=== PATIENT | male | born 1955 | race Caucasian/White ===

== ENCOUNTER → 2018-06-22 08:19 | Outpatient (CLI) | payer BC, SELFPAY ==
[2018-06-22 09:44] LABS: BUN Creatinine Ratio 20.8 (6-22); Blood Urea Nitrogen 25 mg/dL (9-20); Calcium 9.5 mg/dL (8.4-10.2); Carbon Dioxide 31 mmol/L (22-32); Chloride 101 mmol/L (98-107); Estimated Glomerular Filt Rate > 60.0 mL/min (>60); Glucose 147 mg/dL (80-110); HEMOLYSIS < 15 (0-50); Potassium 3.9 mmol/L (3.4-5.1); Sodium 140 mmol/L (137-145)
[2018-06-23 05:16] LABS: Hemoglobin A1C% w Est Avg Glu 6.6 % (4.0-6.0)
== END ==
PROVIDERS: PCP Internal Medicine; Visit Provider Internal Medicine
DX: E11.9 Type 2 diabetes mellitus without complications (principal); I10 Essential (primary) hypertension
CPT/HCPCS: 36415; 80048; 83036

== ENCOUNTER → 2018-09-21 10:04 | Outpatient (CLI) | payer BC, SELFPAY ==
[2018-09-21 11:03] LABS: BUN Creatinine Ratio 21.7 (6-22); Blood Urea Nitrogen 26 mg/dL (9-20); Calcium 9.2 mg/dL (8.4-10.2); Carbon Dioxide 28 mmol/L (22-32); Chloride 100 mmol/L (98-107); Estimated Glomerular Filt Rate > 60.0 mL/min (>60); Glucose 167 mg/dL (80-110); HEMOLYSIS < 15 (0-50); Sodium 141 mmol/L (137-145)
[2018-09-21 11:23] LABS: Vitamin D 25 Hydroxy (D3) 32.1 ng/mL (30.0-100.0)
[2018-09-21 11:35] LABS: Hemoglobin A1C% w Est Avg Glu 8.3 % (4.0-6.0)
== END ==
PROVIDERS: PCP Student in an Organized Health Care Education/Training Program; Visit Provider Student in an Organized Health Care Education/Training Program
DX: E55.9 Vitamin D deficiency, unspecified (principal); E11.9 Type 2 diabetes mellitus without complications; I10 Essential (primary) hypertension
CPT/HCPCS: 36415; 80048; 82306; 83036

== ENCOUNTER → 2019-02-04 08:13 | Outpatient (CLI) | payer BC, SELFPAY ==
[2019-02-04 09:12] LABS: Hemoglobin A1C% w Est Avg Glu 7.8 % (4.0-6.0)
== END ==
PROVIDERS: PCP Student in an Organized Health Care Education/Training Program; Visit Provider Student in an Organized Health Care Education/Training Program
DX: E11.9 Type 2 diabetes mellitus without complications (principal)
CPT/HCPCS: 36415; 83036

== ENCOUNTER 2019-02-07 01:24 | Emergency (ER) | payer BC, SELFPAY ==
[2019-02-07] VITALS (8 sets, daily range): BP systolic 129–170; BP diastolic 79–96; PULSE 74–79; RESP 13–17; TEMP 36.6; O2SAT 96–100; BMI 34.9
--- NOTE | 2019-02-07 01:52 | DI.RAD.S_ITS ---
PROCEDURE: XR CHEST 1V INDICATIONS: chest pain TECHNIQUE: One view of the chest was acquired. COMPARISON: [facility], , CHEST 2 VIEW, 05/27/2012, 9:14. FINDINGS: Surgical changes and devices: None. Lungs and pleura: Lungs are clear. No pleural effusions or pneumothorax. Mediastinum: Mediastinal contours appear normal. Heart size is normal. Bones and chest wall: No suspicious bony lesions. Overlying soft tissues appear unremarkable. IMPRESSION: No acute cardiopulmonary disease. Dictated by: Jasen Arthur M.D. on 02/07/2019 at 8:14 Approved by: Jasen Arthur M.D. on 02/07/2019 at 8:15
[2019-02-07 02:05] LABS: Add Manual Diff / Slide Review NO; Basophils Absolute Auto 100 /uL (0-100); Basophils Percent Auto 0.9 % (0-2); Eosinophils Absolute Auto 400 /uL (0-450); Eosinophils Percent Auto 4.2 % (2-4); Hematocrit 40.3 % (41-53); Hemoglobin 13.7 g/dL (13.5-17.5); Lymphocytes Absolute Auto 2500 /uL (1100-4500); Lymphocytes Percent Auto 23.5 % (25-40); Mean Corpuscular HGB Conc 34.1 % (30-36); Mean Corpuscular Hemoglobin 29.6 PG (26-34); Monocytes Absolute Auto 900 /uL (0-900); Monocytes Percent Auto 8.5 % (3-14); Neutrophils Absolute Auto 6600 /uL (1500-7000); Neutrophils Percent Auto 62.9 % (50-75); Platelet Count 274 X10^3/uL (150-400); Red Blood Cell Count 4.63 X10^6/uL (4.5-5.9); Red Cell Distribution Width 12.6 % (11.6-14.8); White Blood Cell Count 10.5 X10^3/uL (4.5-11.0)
[2019-02-07 02:10] LABS: Alanine Aminotransferase 47 IU/L (21-72); Albumin 4.4 g/dL (3.5-5.0); Albumin Globulin Ratio 1.4 (1.0-2.8); Alkaline Phosphatase 74 U/L (38-126); Aspartate Aminotransferase 22 IU/L (17-59); BUN Creatinine Ratio 23.1 (6-22); Bilirubin Total 0.5 mg/dL (0.2-1.3); Blood Urea Nitrogen 30 mg/dL (9-20); Calcium 9.7 mg/dL (8.4-10.2); Carbon Dioxide 27 mmol/L (22-32); Chloride 99 mmol/L (98-107); Creatine Kinase 87 U/L (55-170); Estimated Glomerular Filt Rate 55.9 mL/min (>60); Globulin 3.1 g/dL (1.7-4.1); Glucose 158 mg/dL (80-110); HEMOLYSIS 15 (0-50); Lipase 113 U/L (23-300); Potassium 3.7 mmol/L (3.4-5.1); Sodium 139 mmol/L (137-145); Total Protein 7.5 g/dL (6.3-8.2)
[2019-02-07 02:21] LABS: Troponin I < 0.012 ng/mL (0.01-0.034)
[2019-02-07] MEDS: ASPIRIN 81 MG TAB 324 MG PO (02:27)
--- NOTE | 2019-02-07 02:56 | ED_ITS ---
HPI - Chest Pain General Chief Complaint: Chest Pain Stated Complaint: High blood pressure, chest tightness/pain Time Seen by Provider: 02/07/19 01:44 Source: patient Mode of arrival: ambulatory Limitations: no limitations History of Present Illness HPI narrative: Patient is a 63-year-old male with history of hypertension diabetes and hyperlipidemia presenting with elevated blood pressure and chest discomfort. He says that he was down in [place] and having some blood pressure issues. He usually takes Micardis and metoprolol he was unable to get his Micardis prescription filled there so he just losartan. His blood pressure has been elevated off and on since. Today he has some chest discomfort and notices blood pressure was elevated. He called the on-call PCP who recommended he take some blood pressure medication. He states his chest discomfort is non radiating he has no arm pain. He has been having some anterior neck pain which is been chronic and ongoing and unchanged today. There is 1 spot on the right side of his lower back which also hurts. Based on all of these symptoms he came to the emergency department for further evaluation. At this time he has no further chest pain. He has his continued back discomfort in 1 spot which is worse with movement Related Data Home Medications Medication Instructions Recorded Confirmed ASPIRIN (#ASPI-COR) 81 mg PO QDAY #0 11/05/11 11/18/18 Previous Rx's Medication Instructions Recorded atorvastatin 20 mg tablet 20 mg PO HS #90 tab 05/03/18 telmisartan 80 1 tab PO DAILY #90 tab 09/21/18 mg-hydrochlorothiazide 12.5 mg tablet chlorthalidone 25 mg tablet 25 mg PO DAILY #90 tab 11/05/18 metoprolol succinate ER 50 mg 50 mg PO QDAY #90 tab 11/05/18 tablet,extended release 24 hr dulaglutide 1.5 mg/0.5 mL 1.5 mg SUBCUT QWEEK #6 ml 11/18/18 subcutaneous pen injector glipizide 5 mg tablet 5 mg PO BID #180 tab 11/18/18 metformin ER 750 mg 750 mg PO DAILY #90 tab 11/18/18 tablet,extended release 24 hr Allergies Allergy/AdvReac Type Severity Reaction Status Date / Time No Known Allergies Allergy Uncoded 11/18/18 09:01 Review of Systems Review of Systems ROS Unobtainable: All systems reviewed & are unremarkable except as noted in HPI and below Constitutional Denies chills, Denies fever(s), Denies lethargy and Denies weakness Eyes Denies change in vision, Denies eye discharge, Denies irritation and Denies loss of vision ENT Ears, Nose, Mouth, and Throat: Reports neck pain (Chronic unchanged) Cardiovascular Reports as per HPI, Reports chest pain, Denies syncope, Denies radiating jaw, neck or arm pain, Denies dyspnea and Denies dyspnea on exertion Respiratory Denies dyspnea and Denies dyspnea on exertion Gastrointestinal Gastrointestinal: Denies abdominal pain, Denies change in bowel habits, Denies diarrhea, Denies nausea and Denies vomiting Musculoskeletal Reports back pain (right 1 spot) and Reports neck pain (Chronic unchanged) Integumentary/Breasts Denies pruritus, Denies erythema, Denies rash and Denies wounds Neurologic Denies syncope, Denies loss of vision and Denies weakness [facility] Medical History Colitis (Chronic 2013) Diabetes mellitus (Chronic 2009) Hyperlipidemia (Chronic 2007) Hypertension (Chronic 2007) Osteoarthritis (Chronic) Actinic keratoses (Resolved 08/2018) Surgical History History of colonoscopy (Resolved 09/22/14) History of total knee arthroplasty (Resolved 09/10/09) Family History Family/Other Diabetes mellitus Hypertension Social History Smoking Status: Former smoker Family History Family/Other Diabetes mellitus Hypertension Social History Smoking Status: Former smoker Exam Initial Vital Signs Initial Vital Signs: Vital Signs Pulse Rate 78 02/07/19 01:30 Respiratory Rate 17 02/07/19 01:30 Blood Pressure 162/96 H 02/07/19 01:30 Pulse Oximetry 96 02/07/19 01:30 GENERAL: Well-appearing, well-nourished and in no acute distress. HEENT: Head atraumatic,EOMI, pupils reactive, CARDIOVASCULAR: Regular rate and rhythm without murmurs, rubs or gallops. RESPIRATORY: Breath sounds equal bilaterally, no wheezes rales or rhonchi. ABDOMEN: Soft, nontender. Normoactive bowel sounds all 4 quadrants. No guarding or rebound. BACK: No vertebral tenderness no step-offs. All right lower rib 9. Or 10 is tender in once reproducible with palpation no sign of : No CVA tenderness EXTREMITIES: Normal range of motion, no clubbing or edema. Neurovascularly intact NEUROLOGICAL: Alert and oriented x4.Normal gait and speech. SKIN: Warm, dry, no laceration, no petechiae, no rashes or lesions. Scores HEART Score Heart Score history: Slightly Suspicious Heart Score EKG: Normal Heart Score Age: 45-64 years old Heart Score risk factors: > 3 risk factors or hx of atherosclerotic disease Heart Score troponin: < or = to normal limit Heart Score Total: 3 Course Orders Ordered: ED Orders 02/07/19 EKG-12 Lead Routine 02/07/19 01:42 Complete Blood Count AUTO DIFF Stat Comprehensive Metabolic Panel Stat Lipase Stat Troponin & CK Cardiac Panel Stat 02/07/19 01:52 XR chest 1V Stat EKG-12 Lead Stat 02/07/19 03:45 Troponin I Stat Discontinued Medications Aspirin (Aspirin Chew) 324 mg PO NOW ONE Stop: 02/07/19 01:53 Last Admin: 02/07/19 02:27 Dose: 324 mg Vital Signs - 8 hr 02/07/19 01:30 02/07/19 01:39 02/07/19 02:00 Temperature 97.8 F Pulse Rate 78 76 78 Respiratory Rate 17 16 15 Blood Pressure 162/96 H Blood Pressure [Right Arm] 162/96 H 170/94 H Pulse Oximetry 96 100 96 02/07/19 02:30 02/07/19 03:00 02/07/19 03:25 Temperature Pulse Rate 79 77 75 Respiratory Rate 14 15 13 Blood Pressure Blood Pressure [Right Arm] 157/84 H 134/81 134/81 Pulse Oximetry 96 96 96 02/07/19 04:00 02/07/19 04:30 Temperature Pulse Rate 77 74 Respiratory Rate 16 17 Blood Pressure 129/79 Blood Pressure [Right Arm] 129/79 Pulse Oximetry 96 96 MDM - Chest Pain Lab Data Attestation: I reviewed the patient's lab results. Result diagrams: 02/07/19 01:42 02/07/19 01:42 Lab Results 02/07/19 02/07/19 02/07/19 Range/Units 01:42 01:42 03:45 WBC 10.5 (4.5-11.0) X10^3/uL RBC 4.63 (4.5-5.9) X10^6/uL Hgb 13.7 (13.5-17.5) g/dL Hct 40.3 L (41-53) % MCV 87.0 (80-100) fL MCH 29.6 (26-34) PG MCHC 34.1 (30-36) % RDW 12.6 (11.6-14.8) % Plt Count 274 (150-400) X10^3/uL Neut % (Auto) 62.9 (50-75) % Lymph % (Auto) 23.5 L (25-40) % [place] % (Auto) 8.5 (3-14) % Eos % (Auto) 4.2 H (2-4) % Baso % (Auto) 0.9 (0-2) % Neut # (Auto) 6600 (2200-7528) /uL Lymph # (Auto) 2500 (8484-2650) /uL [place] # (Auto) 900 (0-900) /uL Eos # (Auto) 400 (0-450) /uL Baso # (Auto) 100 (0-100) /uL Sodium 139 (137-145) mmol/L Potassium 3.7 (3.4-5.1) mmol/L Chloride 99 (98-107) mmol/L Carbon Dioxide 27 (22-32) mmol/L BUN 30 H (9-20) mg/dL Creatinine 1.30 H (0.66-1.25) mg/dL Estimated GFR 55.9 L (>60) mL/min BUN/Creatinine Ratio 23.1 H (6-22) Glucose 158 H (80-110) mg/dL Calcium 9.7 (8.4-10.2) mg/dL Total Bilirubin 0.5 (0.2-1.3) mg/dL AST 22 (17-59) IU/L ALT 47 (21-72) IU/L Alkaline Phosphatase 74 (38-126) U/L Total Creatine Kinase 87 (55-170) U/L CK-MB (CK-2) TNP CK-MB (CK-2) Rel Index TNP Troponin I < 0.012 < 0.012 (0.01-0.034) ng/mL Total Protein 7.5 (6.3-8.2) g/dL Albumin 4.4 (3.5-5.0) g/dL Globulin 3.1 (1.7-4.1) g/dL Albumin/Globulin Ratio 1.4 (1.0-2.8) Lipase 113 (23-300) U/L Imaging Data Chest x-ray: Radiologist's impression: NO ACUTE PROCESS ECG Data Attestation: I personally reviewed and interpreted this ECG as follows: Prior ECG tracings: available for review Interpretation: EKG 1.: Normal sinus rhythm rate [address] changes or T-wave inversions EKG 2. Normal sinus rhythm rate [address] change Discharge Plan Departure Patient Disposition: Home Clinical Impression: Atypical chest pain Discharge Date/Time: 02/07/19 04:30 Interventions: ED Discharge Assessment Last Done: 02/07/19 04:30 Instructions: DI for Atypical Chest Pain Activity Restrictions/Additional Instructions: *You have been diagnosed with atypical chest *What to do: At this time please talk with her PCP as this week to schedule a stress test and echocardiogram. blood work is reassuring today however further testing needed. *Continue to take medications as directed *Follow up with your primary care provider in 2-3 days *Return to ER if you should have increased or in changing chest pain, shortness of breath or any new, worsening or concerning symptoms Prescriptions: No Action telmisartan-hydrochlorothiazid [Micardis HCT] 80-12.5 mg tablet 1 tab PO DAILY Qty: 90 RF: 3 ASPIRIN (#ASPI-COR) 81 mg PO QDAY Qty: 0 RF: 0 atorvastatin [Lipitor] 20 mg tablet 20 mg PO HS Qty: 90 RF: 3 chlorthalidone 25 mg tablet 25 mg PO DAILY Qty: 90 RF: 1 metoprolol succinate 50 mg tablet extended release 24 hr 50 mg PO QDAY Qty: 90 RF: 1 metformin 750 mg tablet extended release 24 hr 750 mg PO DAILY Qty: 90 RF: 1 glipizide 5 mg tablet 5 mg PO BID Qty: 180 RF: 1 dulaglutide [Trulicity] 1.5 mg/0.5 mL pen injector 1.5 mg SUBCUT QWEEK Qty: 6 RF: 3 Referrals: Emir Mckeon MD [Primary Care Provider] -
[2019-02-07 04:13] LABS: Troponin I < 0.012 ng/mL (0.01-0.034)
== END 2019-02-07 04:30 | disposition home or self-care (01) ==
PROVIDERS: Emergency Provider Emergency Medicine; PCP Student in an Organized Health Care Education/Training Program
DX: R07.89 Other chest pain (principal)
CPT/HCPCS: 36415; 36591; 71045; 80053; 82550; 83690; 84484; 85025; 93005; 93041; 99284; 99285

== ENCOUNTER → 2019-05-10 08:11 | Outpatient (CLI) | payer BC, SELFPAY ==
[2019-05-10 09:35] LABS: BUN Creatinine Ratio 23.3 (6-22); Blood Urea Nitrogen 28 mg/dL (9-20); Calcium 9.6 mg/dL (8.4-10.2); Carbon Dioxide 27 mmol/L (22-32); Chloride 102 mmol/L (98-107); Estimated Glomerular Filt Rate > 60.0 mL/min (>60); Glucose 197 mg/dL (80-110); HEMOLYSIS < 15 (0-50); Potassium 4.2 mmol/L (3.4-5.1); Sodium 139 mmol/L (137-145)
[2019-05-10 10:27] LABS: Hemoglobin A1C% w Est Avg Glu 8.3 % (4.0-6.0)
== END ==
PROVIDERS: PCP Student in an Organized Health Care Education/Training Program; Visit Provider Student in an Organized Health Care Education/Training Program
DX: E11.9 Type 2 diabetes mellitus without complications (principal); I10 Essential (primary) hypertension
CPT/HCPCS: 36415; 80048; 83036

== ENCOUNTER → 2019-08-17 08:41 | Outpatient (CLI) | payer BC, SELFPAY ==
[2019-08-17 10:44] LABS: Hemoglobin A1C% w Est Avg Glu 7.7 % (4.0-6.0)
== END ==
PROVIDERS: PCP Student in an Organized Health Care Education/Training Program; Visit Provider Student in an Organized Health Care Education/Training Program
DX: E11.9 Type 2 diabetes mellitus without complications (principal)
CPT/HCPCS: 36415; 83036

== ENCOUNTER → 2019-08-19 11:59 | Outpatient (CLI) | payer BC, SELFPAY | PROVIDERS: PCP Student in an Organized Health Care Education/Training Program; Visit Provider Student in an Organized Health Care Education/Training Program | DX: L08.9 Local infection of the skin and subcutaneous tissue, unspecified (principal); L72.3 Sebaceous cyst | CPT/HCPCS: 87070; 87075; 87077; 87186; 87205 ==

== ENCOUNTER → 2019-11-28 09:43 | Outpatient (CLI) | payer BC, SELFPAY ==
[2019-11-28 10:24] LABS: Hemoglobin A1C% w Est Avg Glu 7.3 % (4.0-6.0)
== END ==
PROVIDERS: PCP Student in an Organized Health Care Education/Training Program; Visit Provider Student in an Organized Health Care Education/Training Program
DX: E11.9 Type 2 diabetes mellitus without complications (principal)
CPT/HCPCS: 36415; 83036

== ENCOUNTER → 2020-04-19 08:18 | Outpatient (CLI) | payer BC, SELFPAY ==
[2020-04-19 10:29] LABS: Hemoglobin A1C% w Est Avg Glu 7.9 % (4.0-6.0)
[2020-04-19 10:42] LABS: BUN Creatinine Ratio 18.8 (6-22); Blood Urea Nitrogen 26 mg/dL (9-20)
[2020-04-19 10:46] LABS: Creatinine Urine Random 287.2 mg/dL
[2020-04-19 10:52] LABS: Microalbumi Creatinin Ratio Ur 7.3 ug/mg CR (<30); Microalbumin Urine Random 2.1 mg/dL (0-1.6)
== END ==
PROVIDERS: PCP Student in an Organized Health Care Education/Training Program; Referring Provider Student in an Organized Health Care Education/Training Program; Visit Provider Student in an Organized Health Care Education/Training Program
DX: Z12.5 Encounter for screening for malignant neoplasm of prostate (principal); E11.9 Type 2 diabetes mellitus without complications; I10 Essential (primary) hypertension
CPT/HCPCS: 36415; 82043; 82565; 82570; 83036; 84520; G0103

== ENCOUNTER → 2020-11-07 09:34 | Outpatient (CLI) | payer BC, SELFPAY ==
[2020-11-07 11:29] LABS: Hemoglobin A1C% w Est Avg Glu 7.5 % (4.0-6.0)
[2020-11-07 11:51] LABS: BUN Creatinine Ratio 25.9 (6-22); Blood Urea Nitrogen 35 mg/dL (9-20); Calcium 9.6 mg/dL (8.4-10.2); Carbon Dioxide 29 mmol/L (22-32); Chloride 100 mmol/L (98-107); Estimated Glomerular Filt Rate 53.2 mL/min (>60); Glucose 113 mg/dL (80-110); HEMOLYSIS < 15 (0-50); Potassium 4.1 mmol/L (3.4-5.1); Sodium 138 mmol/L (137-145)
== END ==
PROVIDERS: PCP Student in an Organized Health Care Education/Training Program; Referring Provider Student in an Organized Health Care Education/Training Program; Visit Provider Student in an Organized Health Care Education/Training Program
DX: E11.9 Type 2 diabetes mellitus without complications (principal); I10 Essential (primary) hypertension
CPT/HCPCS: 36415; 80048; 83036

== ENCOUNTER → 2021-02-19 08:47 | Outpatient (CLI) | payer BC, SELFPAY | PROVIDERS: PCP Student in an Organized Health Care Education/Training Program; Referring Provider Student in an Organized Health Care Education/Training Program; Visit Provider Student in an Organized Health Care Education/Training Program | DX: E11.9 Type 2 diabetes mellitus without complications (principal); Z79.4 Long term (current) use of insulin | CPT/HCPCS: 36415; 83036 ==

== ENCOUNTER → 2021-03-13 11:52 | Outpatient (CLI) | payer BC, SELFPAY ==
--- NOTE | 2021-03-13 11:53 | DI.RAD.S_ITS ---
PROCEDURE: XR KNEE RT 3V INDICATIONS: Right knee pain TECHNIQUE: 3 views of the knee were acquired. COMPARISON: [facility], , KNEE 1-2 VIEWS LEFT, 09/10/2009, 12:48. FINDINGS: Bones: No fractures or dislocations. No suspicious bony lesions. Soft tissues: No joint effusion. No suspicious soft tissue calcifications. IMPRESSION: No trauma found. Slight narrowing of the medial compartment joint interspace indicating slight osteoarthritis in that area. Dictated by: Rigo Victoria M.D. on 03/13/2021 at 15:49 Approved by: Rigo Victoria M.D. on 03/13/2021 at 15:50
== END ==
PROVIDERS: PCP Student in an Organized Health Care Education/Training Program; Referring Provider Student in an Organized Health Care Education/Training Program; Visit Provider Student in an Organized Health Care Education/Training Program
DX: M25.561 Pain in right knee (principal)
CPT/HCPCS: 73562

== ENCOUNTER 2021-08-14 09:00 | Outpatient (RCR) | payer BC, MEDICARE, SELFPAY ==
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
--- NOTE | 2021-04-29 12:42 | PT.OPPOC ---
Physical, Occupational & Speech Therapy At [facility] Current Diagnoses Pain in right knee (04/29/21) Visit Care Team Role Provider Type Emir Mckeon MD Attending Provider Physician Primary Care Provider Referring Provider Specialty: Internal Medicine Address: [address] [place] [address], [address], [address] Email: [email or web address] Plan Of Care PT-OP-T Assessment and Plan Start: 04/29/21 12:08 Freq: Status: Active Protocol: Document 04/29/21 12:17 HH (Rec: 04/29/21 12:42 HH [email or web address]) Physical Therapy Assessment Rehab Potential Rehabilitation Potential Excellent Evaluation Complexity Number of Personal Factors/Comorbidities 1-2 Number of Body Systems Impaired 1-2 Clinical Presentation at Evaluation Stable Impairments Impairments Activity Tolerance,Balance, Functional Activities, Functional Mobility,Gait,Pain, Posture,ROM,Soft Tissue Mobility,Strength,Tone, Transfers Goals HEP Impairment pt does not ahve HEP Short Term Goal (STG) pt will be compliant to his HEP and complete them safely and independently. STG Duration 4 weeks balance Impairment R= 3-7 s , L= >20s Short Term Goal (STG) pt will show improved hip stability and strength to be able to maintain standing on R leg >10 s STG Duration 4 weeks Custodial Goal (LTG) pt will show improved hip stability and strength to be able to maintain standing on R leg >20s, therefore he can complete stair climbing/ walking without compensation LTG Duration 8 weeks pain Impairment pt has consistent pain 5/10 for R knee and hip Short Term Goal (STG) pt will have pain no more than 3/10 for both R knee and R hip while driving STG Duration 4 weeks Custodial Goal (LTG) pt will have painfree for both R knee and R hip while driving and after a prolonged period of sitting LTG Duration 8weeks Assessment Summary Assessment Shola is a 65 yo male here for his R lateral knee and hip pain started this November. Upon assessment, pt presents piriformis syndrome who has very limited R hip internal rotation. His pain was reproduced with slump test, piriformis stretch and pressure at the glute med and piriformis. I believe Shola will benefit from skilled therapy to improve his overall hip mobility, stability and strength in order for him to be able to drive / sit / walk for long period without discomfort. Physical Therapy Plan Frequency and Duration Frequency of Treatment 2x/Week Duration of Treatment 8 weeks Plan of Care Start Date 04/29/21 Plan of Care End Date 06/28/21 Therapeutic Interventions Therapeutic Interventions Aquatic Therapy,Balance Training,Gait Training,Home Exercise Program,Joint Mobilizations,Manual Therapy, Patient/Caregiver Education, Self-Care/Home Management,Soft Tissue Mobilization,Taping, Therapeutic Activities, Therapeutic Exercises Modalities Biofeedback,Cold Pack/Ice Massage,Electric Stimulation, Hot Packs,Infrared Therapy, Paraffin Bath,Traction- Mechanical,Ultrasound Next Visit Focus/Plan Next Note Type Treatment Note Next Visit Plan review piriformis stretch add clamshell hip abd SL balance ex. Plan of Care Dates Plan of Care Start Date 04/29/21 Plan of Care End Date 06/28/21 Electronically Signed by: Liz Woodson PT 04/29/21 9221 Please Sign and Return: I have reviewed this Plan of Care and certify that the skilled therapy services above are required to meet the patient?s needs. Physician Signature Date Printed Name and Credentials Clinical Instructor Signature Printed Name and Credentials
--- NOTE | 2021-05-02 11:11 | PT.OTN ---
Current Diagnoses Pain in right knee (05/02/21) Physical Therapy Treatment Note PT-OP-A Visit Information Start: 04/29/21 12:08 Freq: Status: Active Protocol: Document 05/02/21 10:32 (Rec: 05/02/21 11:11 [id number]) Out-Patient Physical Therapy Visit Information Visit Information Visit Type Treatment Note Visit Start Time 10:31 Visit Stop Time 11:15 Total Visit Minutes 44 Visit Number Number of TROMMEL TENDER Visits 0 PT-OP-B Current Condition Start: 04/29/21 12:08 Freq: Status: Active Protocol: Document 04/29/21 12:17 HH (Rec: 04/29/21 12:42 [email or web address]) Current Condition History of Current Condition Onset Date Nov, 2020 Current Complaints R lateral knee pain with radiating R hip pain, difficulty in sitting History of Current Condition Shola is a 65 yo male here for his R lateral knee pain and hip pain started this November. He began to notice his pain starts from posteriolateral side of R knee and it radiates to his R latearl calf and R lateral hip. His pain particularly gets worse with stepping on the gas pedal while driving and he often has to scoot himself and sit on his L side for pain relief. He also has numbness/ tingling sensation often after prolonged sitting. He notices walking and swimming tend to loose things up and his sleep is not affected at this point . Pt had a broken femur from an accident many years ago and did a traction unit for 6 weeks. Pt also states he walks 4-5 miles a day with a total of 12k steps. Prior Treatments and Tests x-ray for R knee 03/13/21 IMPRESSION: No trauma found. Slight narrowing of the medial compartment joint interspace indicating slight osteoarthritis in that area. LTKA = 15 years ago Treatment Goals Patient/Caregiver Goals 1. to relieve his R knee and hip pain 2. able to drive without discomfort Personal Factors Other Personal Factors That May Effect DM II Therapy/Recovery HTN PT-OP-C Subjective Start: 04/29/21 12:08 Freq: Status: Active Protocol: Document 05/02/21 10:32 (Rec: 05/02/21 11:11 [id number]) OP-PT Subjective Patient Comments Patient Comments I didnt notice anything on mon and tues but i did feel it yesterday while i was driving . Patient Reported Progress Improving PT-OP-D Balance Start: 04/29/21 12:08 Freq: Status: Active Protocol: Document 04/29/21 12:17 HH (Rec: 04/29/21 12:42 [email or web address]) Balance Tests Single Limb Standing Single Limb- Right 5,7,3 Single Limb- Left 24,21,22 PT-OP-F Manual Assessment Start: 04/29/21 12:08 Freq: Status: Active Protocol: Document 04/29/21 12:17 HH (Rec: 04/29/21 12:42 [email or web address]) Manual Assessments Soft Tissue Assessment Soft Tissue Mobility Assessment significant toncity at R piriformis, glute med and R lateral quad (distal) PT-OP-G Mobility & Gait Start: 04/29/21 12:08 Freq: Status: Active Protocol: Document 04/29/21 12:17 HH (Rec: 04/29/21 12:42 [email or web address]) OP Gait Assessment Gait Deviations General Gait Pattern Wide Based Gait Factors Limiting Gait Function Factors Limiting Gait Function Decreased Activity Tolerance, Decreased Strength,Limited Range of Motion,Pain,Poor Balance Comments Gait Comments pt stands and amb with a WBOS with increased WB on L side. PT-OP-J Posture/Palpation/Skin Start: 04/29/21 12:08 Freq: Status: Active Protocol: Document 04/29/21 12:17 HH (Rec: 04/29/21 12:42 [email or web address]) Posture Evaluation Position Standing Pelvis Posture Anteriorly Tilted Weight Distribution Decreased Wt.Bear on (R) Hip Posture (L) Externally Rotated,(R) Externally Rotated Knee Posture (L) Ext. Tibial Torsion,(R) Ext. Tibial Torsion PT-OP-K Range of Motion Start: 04/29/21 12:08 Freq: Status: Active Protocol: Document 04/29/21 12:17 HH (Rec: 04/29/21 12:42 [email or web address]) Hip Goniometric Range of Motion Hip Right Active Straight Leg Raise 50 Internal Rotation 18 External Rotation 58 Left Active Straight Leg Raise 50 Internal Rotation 28 External Rotation 60 Hip ROM Limitations Hip ROM Limitations Soft Tissue Tightness,Muscle Weakness PT-OP-L Special Tests Start: 04/29/21 12:08 Freq: Status: Active Protocol: Document 04/29/21 12:17 (Rec: 04/29/21 12:42 [email or web address]) Special Tests Lumbar Spine Special Tests Slump Test Results +VE R Comments R buttock pain with seated knee ext and DF Hip Special Tests Piriformis Test Results +VE R Comments significant tightness noted. MOE Test Results -ve Straight Leg Raise Test Results -ve Comments 50 degrees without pain Scour Test Test Results -ve Knee Special Tests Apley's Compression Test Results -ve Valgus- 0 Degrees Test Results -ve Varus- 0 Degrees Test Results -ve Valgus- 25 Degrees Test Results -ve Varus- 25 Degrees Test Results -ve PT-OP-M Strength Start: 04/29/21 12:08 Freq: Status: Active Protocol: Document 04/29/21 12:17 (Rec: 04/29/21 12:42 [email or web address]) Hip Strength Hip Manual Muscle Testing Right Flexion (L2) 4+ Good+ Extension (S1) 4+ Good+ Abduction 4+ Good+ Adduction 5 Normal Left Flexion (L2) 5 Normal Extension (S1) 5 Normal Abduction 5 Normal Adduction 5 Normal Knee Strength Knee Manual Muscle Testing Right Flexion (S2) 5 Normal Extension (L3) 5 Normal Left Flexion (S2) 5 Normal Extension (L3) 5 Normal PT-OP-Q Treatments Start: 04/29/21 12:08 Freq: Status: Active Protocol: Document 05/02/21 10:32 (Rec: 05/02/21 11:11 [id number]) Therapeutic Exercises Supine Exercises piriformis stretch Reps/Minutes 15 sec x 5 Comments for HEP Sidelying Exercises clamshell Side bilateral Reps/Minutes 8 x 2 Comments slight discomfort, for HEP open book Sidelying Exercise Name left hand adduct R hip Side bilateral Reps/Minutes 10 sec x 8 Comments for HEP, Standing Exercises tennis ball release Standing Exercise Name at R glute and piriformis Comments for HEP Manual Therapy Treatment Soft Tissue Mobilization piriformis Mobilization Type Myofascial Release,Sustained Pressure,Trigger Point Release Intensity/Depth Moderate Body Position Sidelying Comments significant pain noted R glute Mobilization Type Myofascial Release,Sustained Pressure,Trigger Point Release Intensity/Depth Moderate Body Position Sidelying PT-OP-T Assessment and Plan Start: 04/29/21 12:08 Freq: Status: Active Protocol: Document 05/02/21 10:32 (Rec: 05/02/21 11:11 [id number]) Physical Therapy Assessment Goals HEP Impairment pt does not ahve HEP Short Term Goal (STG) pt will be compliant to his HEP and complete them safely and independently. STG Duration 4 weeks balance Impairment R= 3-7 s , L= >20s Short Term Goal (STG) pt will show improved hip stability and strength to be able to maintain standing on R leg >10 s STG Duration 4 weeks [facility] Goal (LTG) pt will show improved hip stability and strength to be able to maintain standing on R leg >20s, therefore he can complete stair climbing/ walking without compensation LTG Duration 8 weeks pain Impairment pt has consistent pain 5/10 for R knee and hip Short Term Goal (STG) pt will have pain no more than 3/10 for both R knee and R hip while driving STG Duration 4 weeks Collection Analyst Goal (LTG) pt will have painfree for both R knee and R hip while driving and after a prolonged period of sitting LTG Duration 8weeks Assessment Summary Assessment Introduced pt with manual therapy on his R piriformis, R glute followed by stretching and clamshell. Pt taqueria session very well. Will f/u with him to assess progerss. Physical Therapy Plan Frequency and Duration Frequency of Treatment 2x/Week Duration of Treatment 8 weeks Plan of Care Start Date 04/29/21 Plan of Care End Date 06/28/21 Therapeutic Interventions Therapeutic Interventions Aquatic Therapy,Balance Training,Gait Training,Home Exercise Program,Joint Mobilizations,Manual Therapy, Patient/Caregiver Education, Self-Care/Home Management,Soft Tissue Mobilization,Taping, Therapeutic Activities, Therapeutic Exercises Modalities Biofeedback,Cold Pack/Ice Massage,Electric Stimulation, Hot Packs,Infrared Therapy, Paraffin Bath,Traction- Mechanical,Ultrasound Next Visit Focus/Plan Next Note Type Treatment Note Next Visit Plan review piriformis stretch add clamshell hip abd SL balance ex.
--- NOTE | 2021-05-06 11:15 | PT.OTN ---
Current Diagnoses Pain in right knee (05/06/21) Physical Therapy Treatment Note PT-OP-A Visit Information Start: 04/29/21 12:08 Freq: Status: Active Protocol: Document 05/06/21 10:33 HH (Rec: 05/06/21 11:15 [id number]) Out-Patient Physical Therapy Visit Information Visit Information Visit Type Treatment Note Visit Start Time 10:33 Visit Stop Time 11:15 Total Visit Minutes 42 Visit Number 3 Number of EDUCATION DEPARTMENT REGISTRAR Visits 0 PT-OP-B Current Condition Start: 04/29/21 12:08 Freq: Status: Active Protocol: Document 04/29/21 12:17 HH (Rec: 04/29/21 12:42 HH [email or web address]) Current Condition History of Current Condition Onset Date Nov, 2020 Current Complaints R lateral knee pain with radiating R hip pain, difficulty in sitting History of Current Condition Shola is a 65 yo male here for his R lateral knee pain and hip pain started this November. He began to notice his pain starts from posteriolateral side of R knee and it radiates to his R latearl calf and R lateral hip. His pain particularly gets worse with stepping on the gas pedal while driving and he often has to scoot himself and sit on his L side for pain relief. He also has numbness/ tingling sensation often after prolonged sitting. He notices walking and swimming tend to loose things up and his sleep is not affected at this point . Pt had a broken femur from an accident many years ago and did a traction unit for 6 weeks. Pt also states he walks 4-5 miles a day with a total of 12k steps. Prior Treatments and Tests x-ray for R knee 03/13/21 IMPRESSION: No trauma found. Slight narrowing of the medial compartment joint interspace indicating slight osteoarthritis in that area. LTKA = 15 years ago Treatment Goals Patient/Caregiver Goals 1. to relieve his R knee and hip pain 2. able to drive without discomfort Personal Factors Other Personal Factors That May Effect DM II Therapy/Recovery HTN PT-OP-C Subjective Start: 04/29/21 12:08 Freq: Status: Active Protocol: Document 05/06/21 10:33 HH (Rec: 05/06/21 11:15 HH [id number]) OP-PT Subjective Patient Comments Patient Comments The stretches seem to be helpful and able to go further . I [place] and it seems to be abit bitter but i still have that shooting pain to outside of the calf a little. Patient Reported Progress Improving PT-OP-D Balance Start: 04/29/21 12:08 Freq: Status: Active Protocol: Document 04/29/21 12:17 (Rec: 04/29/21 12:42 [email or web address]) Balance Tests Single Limb Standing Single Limb- Right 5,7,3 Single Limb- Left 24,21,22 PT-OP-F Manual Assessment Start: 04/29/21 12:08 Freq: Status: Active Protocol: Document 04/29/21 12:17 HH (Rec: 04/29/21 12:42 [email or web address]) Manual Assessments Soft Tissue Assessment Soft Tissue Mobility Assessment significant toncity at R piriformis, glute med and R lateral quad (distal) PT-OP-G Mobility & Gait Start: 04/29/21 12:08 Freq: Status: Active Protocol: Document 04/29/21 12:17 HH (Rec: 04/29/21 12:42 [email or web address]) OP Gait Assessment Gait Deviations General Gait Pattern Wide Based Gait Factors Limiting Gait Function Factors Limiting Gait Function Decreased Activity Tolerance, Decreased Strength,Limited Range of Motion,Pain,Poor Balance Comments Gait Comments pt stands and amb with a WBOS with increased WB on L side. PT-OP-J Posture/Palpation/Skin Start: 04/29/21 12:08 Freq: Status: Active Protocol: Document 04/29/21 12:17 HH (Rec: 04/29/21 12:42 [email or web address]) Posture Evaluation Position Standing Pelvis Posture Anteriorly Tilted Weight Distribution Decreased Wt.Bear on (R) Hip Posture (L) Externally Rotated,(R) Externally Rotated Knee Posture (L) Ext. Tibial Torsion,(R) Ext. Tibial Torsion PT-OP-K Range of Motion Start: 04/29/21 12:08 Freq: Status: Active Protocol: Document 04/29/21 12:17 HH (Rec: 04/29/21 12:42 [email or web address]) Hip Goniometric Range of Motion Hip Right Active Straight Leg Raise 50 Internal Rotation 18 External Rotation 58 Left Active Straight Leg Raise 50 Internal Rotation 28 External Rotation 60 Hip ROM Limitations Hip ROM Limitations Soft Tissue Tightness,Muscle Weakness PT-OP-L Special Tests Start: 04/29/21 12:08 Freq: Status: Active Protocol: Document 04/29/21 12:17 HH (Rec: 04/29/21 12:42 [email or web address]) Special Tests Lumbar Spine Special Tests Slump Test Results +VE R Comments R buttock pain with seated knee ext and DF Hip Special Tests Piriformis Test Results +VE R Comments significant tightness noted. MOE Test Results -ve Straight Leg Raise Test Results -ve Comments 50 degrees without pain Scour Test Test Results -ve Knee Special Tests Apley's Compression Test Results -ve Valgus- 0 Degrees Test Results -ve Varus- 0 Degrees Test Results -ve Valgus- 25 Degrees Test Results -ve Varus- 25 Degrees Test Results -ve PT-OP-M Strength Start: 04/29/21 12:08 Freq: Status: Active Protocol: Document 04/29/21 12:17 HH (Rec: 04/29/21 12:42 [email or web address]) Hip Strength Hip Manual Muscle Testing Right Flexion (L2) 4+ Good+ Extension (S1) 4+ Good+ Abduction 4+ Good+ Adduction 5 Normal Left Flexion (L2) 5 Normal Extension (S1) 5 Normal Abduction 5 Normal Adduction 5 Normal Knee Strength Knee Manual Muscle Testing Right Flexion (S2) 5 Normal Extension (L3) 5 Normal Left Flexion (S2) 5 Normal Extension (L3) 5 Normal PT-OP-Q Treatments Start: 04/29/21 12:08 Freq: Status: Active Protocol: Document 05/06/21 10:33 HH (Rec: 05/06/21 11:15 [id number]) Cardio Equipment Recumbent Bicycle Duration (Minutes) 6 Resistance 6 Seat Position 9 Other radiating pain noted at lateral knee Bicycle (Upright) Duration (Minutes) 4 Resistance 7 Seat Position 6 Other no radiating pain Therapeutic Exercises Supine Exercises piriformis stretch Reps/Minutes 15 sec x 5 Comments for HEP Sidelying Exercises hip IR stretch Sidelying Exercise Name passive Side right Comments stretching sensation hip abduction Side right Comments slight pain at R hip clamshell Side bilateral Reps/Minutes 20 x2 Comments no discomfort noted. open book Sidelying Exercise Name left hand adduct R hip Side bilateral Reps/Minutes 10 sec x 5 Comments for HEP, Manual Therapy Treatment Soft Tissue Mobilization piriformis Mobilization Type Myofascial Release,Sustained Pressure,Trigger Point Release Intensity/Depth Moderate Body Position Sidelying Comments significant pain noted R glute Mobilization Type Myofascial Release,Sustained Pressure,Trigger Point Release Intensity/Depth Moderate Body Position Sidelying PT-OP-T Assessment and Plan Start: 04/29/21 12:08 Freq: Status: Active Protocol: Document 05/06/21 10:33 HH (Rec: 05/06/21 11:15 HH [id number]) Physical Therapy Assessment Goals HEP Impairment pt does not ahve HEP Short Term Goal (STG) pt will be compliant to his HEP and complete them safely and independently. STG Duration 4 weeks balance Impairment R= 3-7 s , L= >20s Short Term Goal (STG) pt will show improved hip stability and strength to be able to maintain standing on R leg >10 s STG Duration 4 weeks Assistant Laboratory Director Goal (LTG) pt will show improved hip stability and strength to be able to maintain standing on R leg >20s, therefore he can complete stair climbing/ walking without compensation LTG Duration 8 weeks pain Impairment pt has consistent pain 5/10 for R knee and hip Short Term Goal (STG) pt will have pain no more than 3/10 for both R knee and R hip while driving STG Duration 4 weeks Assistant Laboratory Director Goal (LTG) pt will have painfree for both R knee and R hip while driving and after a prolonged period of sitting LTG Duration 8weeks Assessment Summary Assessment Pt reports he seems to feel better since he started doing hip stretches. Educated him to elevate his seat and placement for a chair cushion to alleviate pressure at buttocks. pt also didnt c/o radiating pain to right calf while being on a upright bike. Physical Therapy Plan Frequency and Duration Frequency of Treatment 2x/Week Duration of Treatment 8 weeks Plan of Care Start Date 04/29/21 Plan of Care End Date 06/28/21 Therapeutic Interventions Therapeutic Interventions Aquatic Therapy,Balance Training,Gait Training,Home Exercise Program,Joint Mobilizations,Manual Therapy, Patient/Caregiver Education, Self-Care/Home Management,Soft Tissue Mobilization,Taping, Therapeutic Activities, Therapeutic Exercises Modalities Biofeedback,Cold Pack/Ice Massage,Electric Stimulation, Hot Packs,Infrared Therapy, Paraffin Bath,Traction- Mechanical,Ultrasound Next Visit Focus/Plan Next Note Type Treatment Note Next Visit Plan review piriformis stretch add clamshell hip abd SL balance ex.
--- NOTE | 2021-05-09 11:16 | PT.OTN ---
Current Diagnoses Pain in right knee (05/09/21) Physical Therapy Treatment Note PT-OP-A Visit Information Start: 04/29/21 12:08 Freq: Status: Active Protocol: Document 05/09/21 10:35 HH (Rec: 05/09/21 11:16 [id number]) Out-Patient Physical Therapy Visit Information Visit Information Visit Type Treatment Note Visit Start Time 10:31 Visit Stop Time 11:15 Total Visit Minutes 44 Visit Number 03/22 Number of SAMPLE TESTER Visits 0 PT-OP-B Current Condition Start: 04/29/21 12:08 Freq: Status: Active Protocol: Document 04/29/21 12:17 HH (Rec: 04/29/21 12:42 HH [email or web address]) Current Condition History of Current Condition Onset Date Nov, 2020 Current Complaints R lateral knee pain with radiating R hip pain, difficulty in sitting History of Current Condition Shola is a 65 yo male here for his R lateral knee pain and hip pain started this November. He began to notice his pain starts from posteriolateral side of R knee and it radiates to his R latearl calf and R lateral hip. His pain particularly gets worse with stepping on the gas pedal while driving and he often has to scoot himself and sit on his L side for pain relief. He also has numbness/ tingling sensation often after prolonged sitting. He notices walking and swimming tend to loose things up and his sleep is not affected at this point . Pt had a broken femur from an accident many years ago and did a traction unit for 6 weeks. Pt also states he walks 4-5 miles a day with a total of 12k steps. Prior Treatments and Tests x-ray for R knee 03/13/21 IMPRESSION: No trauma found. Slight narrowing of the medial compartment joint interspace indicating slight osteoarthritis in that area. LTKA = 15 years ago Treatment Goals Patient/Caregiver Goals 1. to relieve his R knee and hip pain 2. able to drive without discomfort Personal Factors Other Personal Factors That May Effect DM II Therapy/Recovery HTN PT-OP-C Subjective Start: 04/29/21 12:08 Freq: Status: Active Protocol: Document 05/09/21 10:35 HH (Rec: 05/09/21 11:16 [id number]) OP-PT Subjective Patient Comments Patient Comments I walked about 8 miles on [place] and i felt a little tight on hamstrings and calf after. Patient Reported Progress Same PT-OP-D Balance Start: 04/29/21 12:08 Freq: Status: Active Protocol: Document 04/29/21 12:17 (Rec: 04/29/21 12:42 [email or web address]) Balance Tests Single Limb Standing Single Limb- Right 5,7,3 Single Limb- Left 24,21,22 PT-OP-F Manual Assessment Start: 04/29/21 12:08 Freq: Status: Active Protocol: Document 04/29/21 12:17 HH (Rec: 04/29/21 12:42 [email or web address]) Manual Assessments Soft Tissue Assessment Soft Tissue Mobility Assessment significant toncity at R piriformis, glute med and R lateral quad (distal) PT-OP-G Mobility & Gait Start: 04/29/21 12:08 Freq: Status: Active Protocol: Document 04/29/21 12:17 HH (Rec: 04/29/21 12:42 [email or web address]) OP Gait Assessment Gait Deviations General Gait Pattern Wide Based Gait Factors Limiting Gait Function Factors Limiting Gait Function Decreased Activity Tolerance, Decreased Strength,Limited Range of Motion,Pain,Poor Balance Comments Gait Comments pt stands and amb with a WBOS with increased WB on L side. PT-OP-J Posture/Palpation/Skin Start: 04/29/21 12:08 Freq: Status: Active Protocol: Document 04/29/21 12:17 HH (Rec: 04/29/21 12:42 [email or web address]) Posture Evaluation Position Standing Pelvis Posture Anteriorly Tilted Weight Distribution Decreased Wt.Bear on (R) Hip Posture (L) Externally Rotated,(R) Externally Rotated Knee Posture (L) Ext. Tibial Torsion,(R) Ext. Tibial Torsion PT-OP-K Range of Motion Start: 04/29/21 12:08 Freq: Status: Active Protocol: Document 04/29/21 12:17 (Rec: 04/29/21 12:42 [email or web address]) Hip Goniometric Range of Motion Hip Right Active Straight Leg Raise 50 Internal Rotation 18 External Rotation 58 Left Active Straight Leg Raise 50 Internal Rotation 28 External Rotation 60 Hip ROM Limitations Hip ROM Limitations Soft Tissue Tightness,Muscle Weakness PT-OP-L Special Tests Start: 04/29/21 12:08 Freq: Status: Active Protocol: Document 04/29/21 12:17 HH (Rec: 04/29/21 12:42 [email or web address]) Special Tests Lumbar Spine Special Tests Slump Test Results +VE R Comments R buttock pain with seated knee ext and DF Hip Special Tests Piriformis Test Results +VE R Comments significant tightness noted. MOE Test Results -ve Straight Leg Raise Test Results -ve Comments 50 degrees without pain Scour Test Test Results -ve Knee Special Tests Apley's Compression Test Results -ve Valgus- 0 Degrees Test Results -ve Varus- 0 Degrees Test Results -ve Valgus- 25 Degrees Test Results -ve Varus- 25 Degrees Test Results -ve PT-OP-M Strength Start: 04/29/21 12:08 Freq: Status: Active Protocol: Document 04/29/21 12:17 HH (Rec: 04/29/21 12:42 [email or web address]) Hip Strength Hip Manual Muscle Testing Right Flexion (L2) 4+ Good+ Extension (S1) 4+ Good+ Abduction 4+ Good+ Adduction 5 Normal Left Flexion (L2) 5 Normal Extension (S1) 5 Normal Abduction 5 Normal Adduction 5 Normal Knee Strength Knee Manual Muscle Testing Right Flexion (S2) 5 Normal Extension (L3) 5 Normal Left Flexion (S2) 5 Normal Extension (L3) 5 Normal PT-OP-Q Treatments Start: 04/29/21 12:08 Freq: Status: Active Protocol: Document 05/09/21 10:35 HH (Rec: 05/09/21 11:16 [id number]) Cardio Equipment Bicycle (Upright) Duration (Minutes) 6 Resistance 7 Seat Position 6 Other no radiating pain Gym Equipment Shuttle Recovery SL squat Resistance #50 Shuttle Recovery Platform Stable Reps/Time no discomfort noted. Therapeutic Exercises Supine Exercises bridging Side bilateral Reps/Minutes 5 sec hold , 10 x2 Comments for HEP piriformis stretch Reps/Minutes 15 sec x 5 Comments for HEP Sidelying Exercises hip abduction Side right Reps/Minutes 8x2 Comments pain noted on 2nd set clamshell Side bilateral Reps/Minutes 20 x2 Comments no discomfort noted. open book Sidelying Exercise Name left hand adduct R hip Side bilateral Reps/Minutes 10 sec x 5 Comments for HEP, Manual Therapy Treatment Soft Tissue Mobilization piriformis Mobilization Type Myofascial Release,Sustained Pressure,Trigger Point Release Intensity/Depth Moderate Body Position Sidelying Comments significant pain noted R glute Mobilization Type Myofascial Release,Sustained Pressure,Trigger Point Release Intensity/Depth Moderate Body Position Sidelying PT-OP-T Assessment and Plan Start: 04/29/21 12:08 Freq: Status: Active Protocol: Document 05/09/21 10:35 HH (Rec: 05/09/21 11:16 [id number]) Physical Therapy Assessment Goals HEP Impairment pt does not ahve HEP Short Term Goal (STG) pt will be compliant to his HEP and complete them safely and independently. STG Duration 4 weeks balance Impairment R= 3-7 s , L= >20s Short Term Goal (STG) pt will show improved hip stability and strength to be able to maintain standing on R leg >10 s STG Duration 4 weeks Retirement Goal (LTG) pt will show improved hip stability and strength to be able to maintain standing on R leg >20s, therefore he can complete stair climbing/ walking without compensation LTG Duration 8 weeks pain Impairment pt has consistent pain 5/10 for R knee and hip Short Term Goal (STG) pt will have pain no more than 3/10 for both R knee and R hip while driving STG Duration 4 weeks Ammonia Distiller Goal (LTG) pt will have painfree for both R knee and R hip while driving and after a prolonged period of sitting LTG Duration 8weeks Assessment Summary Assessment Pt taqueria session very well with addition of SL strengthening ex. He does have some hip and lateral hip pain during SL hip abduction ex. Pt is going on a road trip [facility] so will reassess his progress in 10 days. Physical Therapy Plan Frequency and Duration Frequency of Treatment 2x/Week Duration of Treatment 8 weeks Plan of Care Start Date 04/29/21 Plan of Care End Date 06/28/21 Therapeutic Interventions Therapeutic Interventions Aquatic Therapy,Balance Training,Gait Training,Home Exercise Program,Joint Mobilizations,Manual Therapy, Patient/Caregiver Education, Self-Care/Home Management,Soft Tissue Mobilization,Taping, Therapeutic Activities, Therapeutic Exercises Modalities Biofeedback,Cold Pack/Ice Massage,Electric Stimulation, Hot Packs,Infrared Therapy, Paraffin Bath,Traction- Mechanical,Ultrasound Next Visit Focus/Plan Next Note Type Treatment Note Next Visit Plan review piriformis stretch add clamshell hip abd SL balance ex.
--- NOTE | 2021-05-20 11:16 | PT.OTN ---
Current Diagnoses Pain in right knee (05/20/21) Physical Therapy Treatment Note PT-OP-A Visit Information Start: 04/29/21 12:08 Freq: Status: Active Protocol: Document 05/20/21 10:30 HH (Rec: 05/20/21 11:16 [id number]) Out-Patient Physical Therapy Visit Information Visit Information Visit Type Treatment Note Visit Start Time 10:31 Visit Stop Time 11:15 Total Visit Minutes 44 Visit Number 04/21 Number of MANAGER PRINTING Visits 0 PT-OP-B Current Condition Start: 04/29/21 12:08 Freq: Status: Active Protocol: Document 04/29/21 12:17 HH (Rec: 04/29/21 12:42 HH [email or web address]) Current Condition History of Current Condition Onset Date Nov, 2020 Current Complaints R lateral knee pain with radiating R hip pain, difficulty in sitting History of Current Condition Shola is a 65 yo male here for his R lateral knee pain and hip pain started this November. He began to notice his pain starts from posteriolateral side of R knee and it radiates to his R latearl calf and R lateral hip. His pain particularly gets worse with stepping on the gas pedal while driving and he often has to scoot himself and sit on his L side for pain relief. He also has numbness/ tingling sensation often after prolonged sitting. He notices walking and swimming tend to loose things up and his sleep is not affected at this point . Pt had a broken femur from an accident many years ago and did a traction unit for 6 weeks. Pt also states he walks 4-5 miles a day with a total of 12k steps. Prior Treatments and Tests x-ray for R knee 03/13/21 IMPRESSION: No trauma found. Slight narrowing of the medial compartment joint interspace indicating slight osteoarthritis in that area. LTKA = 15 years ago Treatment Goals Patient/Caregiver Goals 1. to relieve his R knee and hip pain 2. able to drive without discomfort Personal Factors Other Personal Factors That May Effect DM II Therapy/Recovery HTN PT-OP-C Subjective Start: 04/29/21 12:08 Freq: Status: Active Protocol: Document 05/20/21 10:30 HH (Rec: 05/20/21 11:16 HH [id number]) OP-PT Subjective Patient Comments Patient Comments the road trip is fun but driving 5-[address] gave me trouble. I noticed i had to turn my leg inward and bend my knee to help. I do have less tingling and numbness and radiating calf pain for the past week PT-OP-D Balance Start: 04/29/21 12:08 Freq: Status: Active Protocol: Document 04/29/21 12:17 (Rec: 04/29/21 12:42 [email or web address]) Balance Tests Single Limb Standing Single Limb- Right 5,7,3 Single Limb- Left 24,21,22 PT-OP-F Manual Assessment Start: 04/29/21 12:08 Freq: Status: Active Protocol: Document 04/29/21 12:17 HH (Rec: 04/29/21 12:42 [email or web address]) Manual Assessments Soft Tissue Assessment Soft Tissue Mobility Assessment significant toncity at R piriformis, glute med and R lateral quad (distal) PT-OP-G Mobility & Gait Start: 04/29/21 12:08 Freq: Status: Active Protocol: Document 04/29/21 12:17 HH (Rec: 04/29/21 12:42 [email or web address]) OP Gait Assessment Gait Deviations General Gait Pattern Wide Based Gait Factors Limiting Gait Function Factors Limiting Gait Function Decreased Activity Tolerance, Decreased Strength,Limited Range of Motion,Pain,Poor Balance Comments Gait Comments pt stands and amb with a WBOS with increased WB on L side. PT-OP-J Posture/Palpation/Skin Start: 04/29/21 12:08 Freq: Status: Active Protocol: Document 04/29/21 12:17 HH (Rec: 04/29/21 12:42 [email or web address]) Posture Evaluation Position Standing Pelvis Posture Anteriorly Tilted Weight Distribution Decreased Wt.Bear on (R) Hip Posture (L) Externally Rotated,(R) Externally Rotated Knee Posture (L) Ext. Tibial Torsion,(R) Ext. Tibial Torsion PT-OP-K Range of Motion Start: 04/29/21 12:08 Freq: Status: Active Protocol: Document 04/29/21 12:17 HH (Rec: 04/29/21 12:42 [email or web address]) Hip Goniometric Range of Motion Hip Right Active Straight Leg Raise 50 Internal Rotation 18 External Rotation 58 Left Active Straight Leg Raise 50 Internal Rotation 28 External Rotation 60 Hip ROM Limitations Hip ROM Limitations Soft Tissue Tightness,Muscle Weakness PT-OP-L Special Tests Start: 04/29/21 12:08 Freq: Status: Active Protocol: Document 04/29/21 12:17 HH (Rec: 04/29/21 12:42 [email or web address]) Special Tests Lumbar Spine Special Tests Slump Test Results +VE R Comments R buttock pain with seated knee ext and DF Hip Special Tests Piriformis Test Results +VE R Comments significant tightness noted. MOE Test Results -ve Straight Leg Raise Test Results -ve Comments 50 degrees without pain Scour Test Test Results -ve Knee Special Tests Apley's Compression Test Results -ve Valgus- 0 Degrees Test Results -ve Varus- 0 Degrees Test Results -ve Valgus- 25 Degrees Test Results -ve Varus- 25 Degrees Test Results -ve PT-OP-M Strength Start: 04/29/21 12:08 Freq: Status: Active Protocol: Document 04/29/21 12:17 HH (Rec: 04/29/21 12:42 [email or web address]) Hip Strength Hip Manual Muscle Testing Right Flexion (L2) 4+ Good+ Extension (S1) 4+ Good+ Abduction 4+ Good+ Adduction 5 Normal Left Flexion (L2) 5 Normal Extension (S1) 5 Normal Abduction 5 Normal Adduction 5 Normal Knee Strength Knee Manual Muscle Testing Right Flexion (S2) 5 Normal Extension (L3) 5 Normal Left Flexion (S2) 5 Normal Extension (L3) 5 Normal PT-OP-Q Treatments Start: 04/29/21 12:08 Freq: Status: Active Protocol: Document 05/20/21 10:30 HH (Rec: 05/20/21 11:16 [id number]) Gym Equipment Shuttle Recovery SL squat Resistance #50 Shuttle Recovery Platform Stable Reps/Time no discomfort noted. Therapeutic Exercises Supine Exercises hip IR stretch Supine Exercise Name PT assisted Side right bridging Side bilateral Reps/Minutes 5 sec hold , 10 x2 piriformis stretch Reps/Minutes 15 sec x 5 Sidelying Exercises reverse clamshell Reps/Minutes 10 x2, FOR hep clamshell Side bilateral Reps/Minutes 20 x2 Comments no discomfort noted. Manual Therapy Treatment Soft Tissue Mobilization piriformis Mobilization Type Myofascial Release,Sustained Pressure,Trigger Point Release Intensity/Depth Moderate Body Position Sidelying Comments moderate pain noted R glute Mobilization Type Myofascial Release,Sustained Pressure,Trigger Point Release Intensity/Depth Moderate Body Position Sidelying Joint Mobilizations hip traction Joint R hip Direction inferior Grade III Body Position Supine PT-OP-T Assessment and Plan Start: 04/29/21 12:08 Freq: Status: Active Protocol: Document 05/20/21 10:30 HH (Rec: 05/20/21 11:16 HH [id number]) Physical Therapy Assessment Goals HEP Impairment pt does not ahve HEP Short Term Goal (STG) pt will be compliant to his HEP and complete them safely and independently. STG Duration 4 weeks balance Impairment R= 3-7 s , L= >20s Short Term Goal (STG) pt will show improved hip stability and strength to be able to maintain standing on R leg >10 s STG Duration 4 weeks Mcfp Goal (LTG) pt will show improved hip stability and strength to be able to maintain standing on R leg >20s, therefore he can complete stair climbing/ walking without compensation LTG Duration 8 weeks pain Impairment pt has consistent pain 5/10 for R knee and hip Short Term Goal (STG) pt will have pain no more than 3/10 for both R knee and R hip while driving STG Duration 4 weeks Drill Presser Goal (LTG) pt will have painfree for both R knee and R hip while driving and after a prolonged period of sitting LTG Duration 8weeks Assessment Summary Assessment Pt came back from his road trip which involves 5-[address] and 18k steps a day. However, he does feel less pain at calf and neuro sign. Added reverse clamshell today to improve R hip IR. Will add monster walk for HEP next time. Physical Therapy Plan Frequency and Duration Frequency of Treatment 2x/Week Duration of Treatment 8 weeks Plan of Care Start Date 04/29/21 Plan of Care End Date 06/28/21 Therapeutic Interventions Therapeutic Interventions Aquatic Therapy,Balance Training,Gait Training,Home Exercise Program,Joint Mobilizations,Manual Therapy, Patient/Caregiver Education, Self-Care/Home Management,Soft Tissue Mobilization,Taping, Therapeutic Activities, Therapeutic Exercises Modalities Biofeedback,Cold Pack/Ice Massage,Electric Stimulation, Hot Packs,Infrared Therapy, Paraffin Bath,Traction- Mechanical,Ultrasound Next Visit Focus/Plan Next Note Type Treatment Note Next Visit Plan review piriformis stretch add clamshell hip abd SL balance ex.
--- NOTE | 2021-05-23 11:19 | PT.OTN ---
Current Diagnoses Pain in right knee (05/23/21) Physical Therapy Treatment Note PT-OP-A Visit Information Start: 04/29/21 12:08 Freq: Status: Active Protocol: Document 05/23/21 10:37 HH (Rec: 05/23/21 11:18 [id number]) Out-Patient Physical Therapy Visit Information Visit Information Visit Type Treatment Note Visit Start Time 10:33 Visit Stop Time 11:15 Total Visit Minutes 42 Visit Number 05/22 Number of SCIENCE ANALYST Visits 0 PT-OP-B Current Condition Start: 04/29/21 12:08 Freq: Status: Active Protocol: Document 04/29/21 12:17 HH (Rec: 04/29/21 12:42 HH [email or web address]) Current Condition History of Current Condition Onset Date Nov, 2020 Current Complaints R lateral knee pain with radiating R hip pain, difficulty in sitting History of Current Condition Shola is a 65 yo male here for his R lateral knee pain and hip pain started this November. He began to notice his pain starts from posteriolateral side of R knee and it radiates to his R latearl calf and R lateral hip. His pain particularly gets worse with stepping on the gas pedal while driving and he often has to scoot himself and sit on his L side for pain relief. He also has numbness/ tingling sensation often after prolonged sitting. He notices walking and swimming tend to loose things up and his sleep is not affected at this point . Pt had a broken femur from an accident many years ago and did a traction unit for 6 weeks. Pt also states he walks 4-5 miles a day with a total of 12k steps. Prior Treatments and Tests x-ray for R knee 03/13/21 IMPRESSION: No trauma found. Slight narrowing of the medial compartment joint interspace indicating slight osteoarthritis in that area. LTKA = 15 years ago Treatment Goals Patient/Caregiver Goals 1. to relieve his R knee and hip pain 2. able to drive without discomfort Personal Factors Other Personal Factors That May Effect DM II Therapy/Recovery HTN PT-OP-C Subjective Start: 04/29/21 12:08 Freq: Status: Active Protocol: Document 05/23/21 10:37 HH (Rec: 05/23/21 11:18 [id number]) OP-PT Subjective Patient Comments Patient Comments I took it easy for thursday and thursday then i felt stiff so i went for walks yesterday. I drove a bit but broke it down to walking and resting so it was fine for my hip. Patient Reported Progress Improving PT-OP-D Balance Start: 04/29/21 12:08 Freq: Status: Active Protocol: Document 04/29/21 12:17 (Rec: 04/29/21 12:42 [email or web address]) Balance Tests Single Limb Standing Single Limb- Right 5,7,3 Single Limb- Left 24,21,22 PT-OP-F Manual Assessment Start: 04/29/21 12:08 Freq: Status: Active Protocol: Document 04/29/21 12:17 (Rec: 04/29/21 12:42 [id number]) Manual Assessments Soft Tissue Assessment Soft Tissue Mobility Assessment significant toncity at R piriformis, glute med and R lateral quad (distal) PT-OP-G Mobility & Gait Start: 04/29/21 12:08 Freq: Status: Active Protocol: Document 04/29/21 12:17 (Rec: 04/29/21 12:42 [id number]) OP Gait Assessment Gait Deviations General Gait Pattern Wide Based Gait Factors Limiting Gait Function Factors Limiting Gait Function Decreased Activity Tolerance, Decreased Strength,Limited Range of Motion,Pain,Poor Balance Comments Gait Comments pt stands and amb with a WBOS with increased WB on L side. PT-OP-J Posture/Palpation/Skin Start: 04/29/21 12:08 Freq: Status: Active Protocol: Document 04/29/21 12:17 (Rec: 04/29/21 12:42 [id number]) Posture Evaluation Position Standing Pelvis Posture Anteriorly Tilted Weight Distribution Decreased Wt.Bear on (R) Hip Posture (L) Externally Rotated,(R) Externally Rotated Knee Posture (L) Ext. Tibial Torsion,(R) Ext. Tibial Torsion PT-OP-K Range of Motion Start: 04/29/21 12:08 Freq: Status: Active Protocol: Document 04/29/21 12:17 (Rec: 04/29/21 12:42 [email or web address]) Hip Goniometric Range of Motion Hip Right Active Straight Leg Raise 50 Internal Rotation 18 External Rotation 58 Left Active Straight Leg Raise 50 Internal Rotation 28 External Rotation 60 Hip ROM Limitations Hip ROM Limitations Soft Tissue Tightness,Muscle Weakness PT-OP-L Special Tests Start: 04/29/21 12:08 Freq: Status: Active Protocol: Document 04/29/21 12:17 HH (Rec: 04/29/21 12:42 [email or web address]) Special Tests Lumbar Spine Special Tests Slump Test Results +VE R Comments R buttock pain with seated knee ext and DF Hip Special Tests Piriformis Test Results +VE R Comments significant tightness noted. MOE Test Results -ve Straight Leg Raise Test Results -ve Comments 50 degrees without pain Scour Test Test Results -ve Knee Special Tests Apley's Compression Test Results -ve Valgus- 0 Degrees Test Results -ve Varus- 0 Degrees Test Results -ve Valgus- 25 Degrees Test Results -ve Varus- 25 Degrees Test Results -ve PT-OP-M Strength Start: 04/29/21 12:08 Freq: Status: Active Protocol: Document 04/29/21 12:17 HH (Rec: 04/29/21 12:42 [email or web address]) Hip Strength Hip Manual Muscle Testing Right Flexion (L2) 4+ Good+ Extension (S1) 4+ Good+ Abduction 4+ Good+ Adduction 5 Normal Left Flexion (L2) 5 Normal Extension (S1) 5 Normal Abduction 5 Normal Adduction 5 Normal Knee Strength Knee Manual Muscle Testing Right Flexion (S2) 5 Normal Extension (L3) 5 Normal Left Flexion (S2) 5 Normal Extension (L3) 5 Normal PT-OP-Q Treatments Start: 04/29/21 12:08 Freq: Status: Active Protocol: Document 05/23/21 10:37 HH (Rec: 05/23/21 11:18 HH [id number]) Cardio Equipment Bicycle (Upright) Duration (Minutes) 6 Resistance 7 Seat Position 6 Other no radiating pain Gym Equipment Shuttle Recovery SL squat Resistance #50 Shuttle Recovery Platform Stable Reps/Time no discomfort noted. Therapeutic Exercises Supine Exercises hip IR stretch Supine Exercise Name PT assisted Side right piriformis stretch Reps/Minutes 15 sec x 5 Sidelying Exercises hip IR stretch Sidelying Exercise Name passive Side right Comments stretching sensation clamshell Side bilateral Reps/Minutes 20 x2 Comments no discomfort noted. Standing Exercises donkey kick Reps/Minutes 10 x 2 Comments for HEP hip hike Side bilateral Reps/Minutes 2 mins Comments slight pain at R hip. crab walk Side bilateral Equipment Used band at ankles (red) Reps/Minutes 10 ft x6 Manual Therapy Treatment Soft Tissue Mobilization piriformis Mobilization Type Myofascial Release,Sustained Pressure,Trigger Point Release Intensity/Depth Moderate Body Position Sidelying Comments moderate pain noted R glute Mobilization Type Myofascial Release,Sustained Pressure,Trigger Point Release Intensity/Depth Moderate Body Position Sidelying PT-OP-T Assessment and Plan Start: 04/29/21 12:08 Freq: Status: Active Protocol: Document 05/23/21 10:37 HH (Rec: 05/23/21 11:18 HH [id number]) Physical Therapy Assessment Goals HEP Impairment pt does not ahve HEP Short Term Goal (STG) pt will be compliant to his HEP and complete them safely and independently. STG Duration 4 weeks balance Impairment R= 3-7 s , L= >20s Short Term Goal (STG) pt will show improved hip stability and strength to be able to maintain standing on R leg >10 s STG Duration 4 weeks Auto Air Conditioning Apprentice Goal (LTG) pt will show improved hip stability and strength to be able to maintain standing on R leg >20s, therefore he can complete stair climbing/ walking without compensation LTG Duration 8 weeks pain Impairment pt has consistent pain 5/10 for R knee and hip Short Term Goal (STG) pt will have pain no more than 3/10 for both R knee and R hip while driving STG Duration 4 weeks Prison Goal (LTG) pt will have painfree for both R knee and R hip while driving and after a prolonged period of sitting LTG Duration 8weeks Assessment Summary Assessment Pt is progressing as he stated . He noticed his driving tolerance is getting longer. Added glute strengthening ex and pt does has discomfort with hip abduction but not extension. Pt will continue to benefit skilled therapy 1x/wk x 4 weeks Physical Therapy Plan Frequency and Duration Frequency of Treatment 1x/Week Duration of Treatment 8 weeks Plan of Care Start Date 04/29/21 Plan of Care End Date 06/28/21 Therapeutic Interventions Therapeutic Interventions Aquatic Therapy,Balance Training,Gait Training,Home Exercise Program,Joint Mobilizations,Manual Therapy, Patient/Caregiver Education, Self-Care/Home Management,Soft Tissue Mobilization,Taping, Therapeutic Activities, Therapeutic Exercises Modalities Biofeedback,Cold Pack/Ice Massage,Electric Stimulation, Hot Packs,Infrared Therapy, Paraffin Bath,Traction- Mechanical,Ultrasound Next Visit Focus/Plan Next Note Type Treatment Note Next Visit Plan review piriformis stretch add clamshell hip abd SL balance ex.
--- NOTE | 2021-06-04 16:08 | PT.OTN ---
Current Diagnoses Pain in right knee (06/04/21) Physical Therapy Treatment Note PT-OP-A Visit Information Start: 04/29/21 12:08 Freq: Status: Active Protocol: Document 06/04/21 15:18 HH (Rec: 06/04/21 16:08 [id number]) Out-Patient Physical Therapy Visit Information Visit Information Visit Type Treatment Note Visit Start Time 15:19 Visit Stop Time 16:00 Total Visit Minutes 41 Visit Number 06/21 Number of DAM TENDER Visits 0 PT-OP-B Current Condition Start: 04/29/21 12:08 Freq: Status: Active Protocol: Document 04/29/21 12:17 HH (Rec: 04/29/21 12:42 [email or web address]) Current Condition History of Current Condition Onset Date Nov, 2020 Current Complaints R lateral knee pain with radiating R hip pain, difficulty in sitting History of Current Condition Shola is a 65 yo male here for his R lateral knee pain and hip pain started this November. He began to notice his pain starts from posteriolateral side of R knee and it radiates to his R latearl calf and R lateral hip. His pain particularly gets worse with stepping on the gas pedal while driving and he often has to scoot himself and sit on his L side for pain relief. He also has numbness/ tingling sensation often after prolonged sitting. He notices walking and swimming tend to loose things up and his sleep is not affected at this point . Pt had a broken femur from an accident many years ago and did a traction unit for 6 weeks. Pt also states he walks 4-5 miles a day with a total of 12k steps. Prior Treatments and Tests x-ray for R knee 03/13/21 IMPRESSION: No trauma found. Slight narrowing of the medial compartment joint interspace indicating slight osteoarthritis in that area. LTKA = 15 years ago Treatment Goals Patient/Caregiver Goals 1. to relieve his R knee and hip pain 2. able to drive without discomfort Personal Factors Other Personal Factors That May Effect DM II Therapy/Recovery HTN PT-OP-C Subjective Start: 04/29/21 12:08 Freq: Status: Active Protocol: Document 06/04/21 15:18 HH (Rec: 06/04/21 16:08 [id number]) OP-PT Subjective Patient Comments Patient Comments I think i somehow twisted my hip / back while lifting a heavy piece of object. Then i was hurting for 3 days and took some ibuprofen. Im better now. I was also able to drive down [place] and back with 1 rest break so my sitting tolerance is better Patient Reported Progress Same PT-OP-D Balance Start: 04/29/21 12:08 Freq: Status: Active Protocol: Document 04/29/21 12:17 (Rec: 04/29/21 12:42 [email or web address]) Balance Tests Single Limb Standing Single Limb- Right 5,7,3 Single Limb- Left 24,21,22 PT-OP-F Manual Assessment Start: 04/29/21 12:08 Freq: Status: Active Protocol: Document 04/29/21 12:17 (Rec: 04/29/21 12:42 [email or web address]) Manual Assessments Soft Tissue Assessment Soft Tissue Mobility Assessment significant toncity at R piriformis, glute med and R lateral quad (distal) PT-OP-G Mobility & Gait Start: 04/29/21 12:08 Freq: Status: Active Protocol: Document 04/29/21 12:17 HH (Rec: 04/29/21 12:42 [email or web address]) OP Gait Assessment Gait Deviations General Gait Pattern Wide Based Gait Factors Limiting Gait Function Factors Limiting Gait Function Decreased Activity Tolerance, Decreased Strength,Limited Range of Motion,Pain,Poor Balance Comments Gait Comments pt stands and amb with a WBOS with increased WB on L side. PT-OP-J Posture/Palpation/Skin Start: 04/29/21 12:08 Freq: Status: Active Protocol: Document 04/29/21 12:17 (Rec: 04/29/21 12:42 [email or web address]) Posture Evaluation Position Standing Pelvis Posture Anteriorly Tilted Weight Distribution Decreased Wt.Bear on (R) Hip Posture (L) Externally Rotated,(R) Externally Rotated Knee Posture (L) Ext. Tibial Torsion,(R) Ext. Tibial Torsion PT-OP-K Range of Motion Start: 04/29/21 12:08 Freq: Status: Active Protocol: Document 04/29/21 12:17 HH (Rec: 04/29/21 12:42 [email or web address]) Hip Goniometric Range of Motion Hip Right Active Straight Leg Raise 50 Internal Rotation 18 External Rotation 58 Left Active Straight Leg Raise 50 Internal Rotation 28 External Rotation 60 Hip ROM Limitations Hip ROM Limitations Soft Tissue Tightness,Muscle Weakness PT-OP-L Special Tests Start: 04/29/21 12:08 Freq: Status: Active Protocol: Document 04/29/21 12:17 (Rec: 04/29/21 12:42 [email or web address]) Special Tests Lumbar Spine Special Tests Slump Test Results +VE R Comments R buttock pain with seated knee ext and DF Hip Special Tests Piriformis Test Results +VE R Comments significant tightness noted. MOE Test Results -ve Straight Leg Raise Test Results -ve Comments 50 degrees without pain Scour Test Test Results -ve Knee Special Tests Apley's Compression Test Results -ve Valgus- 0 Degrees Test Results -ve Varus- 0 Degrees Test Results -ve Valgus- 25 Degrees Test Results -ve Varus- 25 Degrees Test Results -ve PT-OP-M Strength Start: 04/29/21 12:08 Freq: Status: Active Protocol: Document 04/29/21 12:17 (Rec: 04/29/21 12:42 [email or web address]) Hip Strength Hip Manual Muscle Testing Right Flexion (L2) 4+ Good+ Extension (S1) 4+ Good+ Abduction 4+ Good+ Adduction 5 Normal Left Flexion (L2) 5 Normal Extension (S1) 5 Normal Abduction 5 Normal Adduction 5 Normal Knee Strength Knee Manual Muscle Testing Right Flexion (S2) 5 Normal Extension (L3) 5 Normal Left Flexion (S2) 5 Normal Extension (L3) 5 Normal PT-OP-Q Treatments Start: 04/29/21 12:08 Freq: Status: Active Protocol: Document 06/04/21 15:18 (Rec: 06/04/21 16:08 [id number]) Cardio Equipment Bicycle (Upright) Duration (Minutes) 6 Resistance 7 Seat Position 6 Other no radiating pain Therapeutic Exercises Supine Exercises hip IR stretch Supine Exercise Name PT assisted Side right bridging Side bilateral Reps/Minutes 5 sec hold , 10 x2 Comments for HEP piriformis stretch Reps/Minutes 15 sec x 5 Sidelying Exercises hip abduction Side right Comments pain at R hip after 5 reps clamshell Side bilateral Reps/Minutes 20 x2 Comments no discomfort noted. Standing Exercises hip abd Side right Reps/Minutes 5 x2 Comments pain at R hip after 5 reps donkey kick Reps/Minutes 10 x 2 Comments for HEP, no discomfort noted. Manual Therapy Treatment Soft Tissue Mobilization R QL Mobilization Type Myofascial Release,Sustained Pressure,Trigger Point Release Intensity/Depth Moderate Body Position Sidelying Comments increased tonicity noted today . R glute Mobilization Type Myofascial Release,Sustained Pressure,Trigger Point Release Intensity/Depth Moderate Body Position Sidelying PT-OP-T Assessment and Plan Start: 04/29/21 12:08 Freq: Status: Active Protocol: Document 06/04/21 15:18 (Rec: 06/04/21 16:08 [id number]) Physical Therapy Assessment Goals HEP Impairment pt does not ahve HEP Short Term Goal (STG) pt will be compliant to his HEP and complete them safely and independently. STG Duration 4 weeks balance Impairment R= 3-7 s , L= >20s Short Term Goal (STG) pt will show improved hip stability and strength to be able to maintain standing on R leg >10 s STG Duration 4 weeks Longterm Goal (LTG) pt will show improved hip stability and strength to be able to maintain standing on R leg >20s, therefore he can complete stair climbing/ walking without compensation LTG Duration 8 weeks pain Impairment pt has consistent pain 5/10 for R knee and hip Short Term Goal (STG) pt will have pain no more than 3/10 for both R knee and R hip while driving STG Duration 4 weeks Manager Continuous Improvement Goal (LTG) pt will have painfree for both R knee and R hip while driving and after a prolonged period of sitting LTG Duration 8weeks Assessment Summary Assessment pt has a flare up with radiating hip pain after repetitive lifting and bending over on thursday but he is now recovered. SL hip abduction and step up are still irritating at this point but not bridging and donkey kick. Pt does report of improvements who has less radiating lateral knee pain and betterdriving tolerance. Physical Therapy Plan Frequency and Duration Frequency of Treatment 1x/Week Duration of Treatment 8 weeks Plan of Care Start Date 04/29/21 Plan of Care End Date 06/28/21 Therapeutic Interventions Therapeutic Interventions Aquatic Therapy,Balance Training,Gait Training,Home Exercise Program,Joint Mobilizations,Manual Therapy, Patient/Caregiver Education, Self-Care/Home Management,Soft Tissue Mobilization,Taping, Therapeutic Activities, Therapeutic Exercises Modalities Biofeedback,Cold Pack/Ice Massage,Electric Stimulation, Hot Packs,Infrared Therapy, Paraffin Bath,Traction- Mechanical,Ultrasound Next Visit Focus/Plan Next Note Type Treatment Note Next Visit Plan review piriformis stretch add clamshell hip abd SL balance ex.
--- NOTE | 2021-06-12 09:47 | PT.OTN ---
Current Diagnoses Pain in right knee (06/12/21) Physical Therapy Treatment Note PT-OP-A Visit Information Start: 04/29/21 12:08 Freq: Status: Active Protocol: Document 06/12/21 09:05 (Rec: 06/12/21 09:47 [id number]) Out-Patient Physical Therapy Visit Information Visit Information Visit Type Treatment Note Visit Start Time 09:05 Visit Stop Time 09:45 Total Visit Minutes 40 Visit Number 8/ Number of GETTER FILLER Visits 0 PT-OP-B Current Condition Start: 04/29/21 12:08 Freq: Status: Active Protocol: Document 04/29/21 12:17 HH (Rec: 04/29/21 12:42 [email or web address]) Current Condition History of Current Condition Onset Date Nov, 2020 Current Complaints R lateral knee pain with radiating R hip pain, difficulty in sitting History of Current Condition Shola is a 65 yo male here for his R lateral knee pain and hip pain started this November. He began to notice his pain starts from posteriolateral side of R knee and it radiates to his R latearl calf and R lateral hip. His pain particularly gets worse with stepping on the gas pedal while driving and he often has to scoot himself and sit on his L side for pain relief. He also has numbness/ tingling sensation often after prolonged sitting. He notices walking and swimming tend to loose things up and his sleep is not affected at this point . Pt had a broken femur from an accident many years ago and did a traction unit for 6 weeks. Pt also states he walks 4-5 miles a day with a total of 12k steps. Prior Treatments and Tests x-ray for R knee 03/13/21 IMPRESSION: No trauma found. Slight narrowing of the medial compartment joint interspace indicating slight osteoarthritis in that area. LTKA = 15 years ago Treatment Goals Patient/Caregiver Goals 1. to relieve his R knee and hip pain 2. able to drive without discomfort Personal Factors Other Personal Factors That May Effect DM II Therapy/Recovery HTN PT-OP-C Subjective Start: 04/29/21 12:08 Freq: Status: Active Protocol: Document 06/12/21 09:05 (Rec: 06/12/21 09:47 [id number]) OP-PT Subjective Patient Comments Patient Comments Daxa been feeling pretty good so far but im a little bit sore. Daxa been walking 6/7 miles a day. Patient Reported Progress Improving PT-OP-D Balance Start: 04/29/21 12:08 Freq: Status: Active Protocol: Document 04/29/21 12:17 HH (Rec: 04/29/21 12:42 [email or web address]) Balance Tests Single Limb Standing Single Limb- Right 5,7,3 Single Limb- Left 24,21,22 PT-OP-F Manual Assessment Start: 04/29/21 12:08 Freq: Status: Active Protocol: Document 04/29/21 12:17 HH (Rec: 04/29/21 12:42 [email or web address]) Manual Assessments Soft Tissue Assessment Soft Tissue Mobility Assessment significant toncity at R piriformis, glute med and R lateral quad (distal) PT-OP-G Mobility & Gait Start: 04/29/21 12:08 Freq: Status: Active Protocol: Document 04/29/21 12:17 HH (Rec: 04/29/21 12:42 [email or web address]) OP Gait Assessment Gait Deviations General Gait Pattern Wide Based Gait Factors Limiting Gait Function Factors Limiting Gait Function Decreased Activity Tolerance, Decreased Strength,Limited Range of Motion,Pain,Poor Balance Comments Gait Comments pt stands and amb with a WBOS with increased WB on L side. PT-OP-J Posture/Palpation/Skin Start: 04/29/21 12:08 Freq: Status: Active Protocol: Document 04/29/21 12:17 HH (Rec: 04/29/21 12:42 [email or web address]) Posture Evaluation Position Standing Pelvis Posture Anteriorly Tilted Weight Distribution Decreased Wt.Bear on (R) Hip Posture (L) Externally Rotated,(R) Externally Rotated Knee Posture (L) Ext. Tibial Torsion,(R) Ext. Tibial Torsion PT-OP-K Range of Motion Start: 04/29/21 12:08 Freq: Status: Active Protocol: Document 04/29/21 12:17 HH (Rec: 04/29/21 12:42 [email or web address]) Hip Goniometric Range of Motion Hip Right Active Straight Leg Raise 50 Internal Rotation 18 External Rotation 58 Left Active Straight Leg Raise 50 Internal Rotation 28 External Rotation 60 Hip ROM Limitations Hip ROM Limitations Soft Tissue Tightness,Muscle Weakness PT-OP-L Special Tests Start: 04/29/21 12:08 Freq: Status: Active Protocol: Document 04/29/21 12:17 (Rec: 04/29/21 12:42 [email or web address]) Special Tests Lumbar Spine Special Tests Slump Test Results +VE R Comments R buttock pain with seated knee ext and DF Hip Special Tests Piriformis Test Results +VE R Comments significant tightness noted. MOE Test Results -ve Straight Leg Raise Test Results -ve Comments 50 degrees without pain Scour Test Test Results -ve Knee Special Tests Apley's Compression Test Results -ve Valgus- 0 Degrees Test Results -ve Varus- 0 Degrees Test Results -ve Valgus- 25 Degrees Test Results -ve Varus- 25 Degrees Test Results -ve PT-OP-M Strength Start: 04/29/21 12:08 Freq: Status: Active Protocol: Document 04/29/21 12:17 HH (Rec: 04/29/21 12:42 [email or web address]) Hip Strength Hip Manual Muscle Testing Right Flexion (L2) 4+ Good+ Extension (S1) 4+ Good+ Abduction 4+ Good+ Adduction 5 Normal Left Flexion (L2) 5 Normal Extension (S1) 5 Normal Abduction 5 Normal Adduction 5 Normal Knee Strength Knee Manual Muscle Testing Right Flexion (S2) 5 Normal Extension (L3) 5 Normal Left Flexion (S2) 5 Normal Extension (L3) 5 Normal PT-OP-Q Treatments Start: 04/29/21 12:08 Freq: Status: Active Protocol: Document 06/12/21 09:05 (Rec: 06/12/21 09:47 [id number]) Cardio Equipment Bicycle (Upright) Duration (Minutes) 6 Resistance 7 Seat Position 6 Other no radiating pain Gym Equipment Shuttle Recovery SL squat Resistance #50 Shuttle Recovery Platform Stable Reps/Time no discomfort noted. Therapeutic Exercises Supine Exercises SLR Side bilateral Reps/Minutes 10 x2 Comments discomfort at greater trochanteric region bridging Side bilateral Reps/Minutes 5 sec hold , 10 x2 Comments for HEP Standing Exercises step up Reps/Minutes 10 x2 Comments cues on neutral foot donkey kick Standing Exercise Name cues on neutral foot. Reps/Minutes 10 x 2 Comments for HEP, no discomfort noted. Manual Therapy Treatment Soft Tissue Mobilization hip flexor Mobilization Type Sustained Pressure,Trigger Point Release Intensity/Depth Moderate Body Position Supine R QL Mobilization Type Myofascial Release,Sustained Pressure,Trigger Point Release Intensity/Depth Moderate Body Position Sidelying Comments reduced tonicity noted today. piriformis Mobilization Type Myofascial Release,Sustained Pressure,Trigger Point Release Intensity/Depth Moderate Body Position Sidelying Comments reduced pain noted PT-OP-T Assessment and Plan Start: 04/29/21 12:08 Freq: Status: Active Protocol: Document 06/12/21 09:05 (Rec: 06/12/21 09:47 [id number]) Physical Therapy Assessment Goals HEP Impairment pt does not ahve HEP Short Term Goal (STG) pt will be compliant to his HEP and complete them safely and independently. STG Duration 4 weeks balance Impairment R= 3-7 s , L= >20s Short Term Goal (STG) pt will show improved hip stability and strength to be able to maintain standing on R leg >10 s STG Duration 4 weeks Assisted Goal (LTG) pt will show improved hip stability and strength to be able to maintain standing on R leg >20s, therefore he can complete stair climbing/ walking without compensation LTG Duration 8 weeks pain Impairment pt has consistent pain 5/10 for R knee and hip Short Term Goal (STG) pt will have pain no more than 3/10 for both R knee and R hip while driving STG Duration 4 weeks Assisted Goal (LTG) pt will have painfree for both R knee and R hip while driving and after a prolonged period of sitting LTG Duration 8weeks Assessment Summary Assessment pt reports he is doing well. However, he still presents increased R toe out during gait and he reports he ER his R hip while driving. Recommended him to drive with more a neutral foot position to reduce mechanical pressure at his R hip. Physical Therapy Plan Frequency and Duration Frequency of Treatment 1x/Week Duration of Treatment 8 weeks Plan of Care Start Date 04/29/21 Plan of Care End Date 06/28/21 Therapeutic Interventions Therapeutic Interventions Aquatic Therapy,Balance Training,Gait Training,Home Exercise Program,Joint Mobilizations,Manual Therapy, Patient/Caregiver Education, Self-Care/Home Management,Soft Tissue Mobilization,Taping, Therapeutic Activities, Therapeutic Exercises Modalities Biofeedback,Cold Pack/Ice Massage,Electric Stimulation, Hot Packs,Infrared Therapy, Paraffin Bath,Traction- Mechanical,Ultrasound Next Visit Focus/Plan Next Note Type Treatment Note Next Visit Plan review piriformis stretch add clamshell hip abd SL balance ex.
--- NOTE | 2021-06-19 09:50 | PT.OPPOC ---
Physical, Occupational & Speech Therapy At [facility] Current Diagnoses Pain in right knee (06/19/21) Visit Care Team Role Provider Type Emir Mckeon MD Attending Provider Physician Primary Care Provider Referring Provider Specialty: Internal Medicine Address: [address] [place] [address], [address], [address] Email: [email or web address] Plan Of Care PT-OP-T Assessment and Plan Start: 04/29/21 12:08 Freq: Status: Active Protocol: Document 06/19/21 09:02 HH (Rec: 06/19/21 09:50 HH [id number]) Physical Therapy Assessment Goals HEP Impairment pt does not ahve HEP Short Term Goal (STG) pt will be compliant to his HEP and complete them safely and independently. STG Duration 4 weeks Halfway Goal (LTG) 06/19 goal met pt has been compliant to his HEP daily. balance Impairment R= 3-7 s , L= >20s Short Term Goal (STG) 06/19 goal met pt shows improved hip stability and strength to be able to maintain standing on R leg >10 s STG Duration 4 weeks Jump Iron Machine Presser Goal (LTG) pt will show improved hip stability and strength to be able to maintain standing on R leg >20s, therefore he can complete stair climbing/ walking without compensation LTG Duration 8 weeks pain Impairment pt has consistent pain 5/10 for R knee and hip Short Term Goal (STG) 06/19 pt is able to tolerate driving >30-45 mins without the need to come off pt will have pain no more than 3/10 for both R knee and R hip while driving STG Duration 4 weeks Halfway Goal (LTG) pt will have painfree for both R knee and R hip while driving and after a prolonged period of sitting LTG Duration 8weeks Assessment Summary Assessment pt hasnt driven lately and he is doing good. Pt at this point has good awareness of his foot position during gait and driving. I also Added seated sciatic nerve glide today. Pt overall shows improved hip strength and activity tolerance and it will be benefitical to continue therapy for 1 more month to focus on sciatic nerve desensitization, SL balance and overall hip srength Physical Therapy Plan Frequency and Duration Frequency of Treatment 1x/Week Duration of Treatment 4 weeks Plan of Care Start Date 06/19/21 Plan of Care End Date 07/19/21 Therapeutic Interventions Therapeutic Interventions Aquatic Therapy,Balance Training,Gait Training,Home Exercise Program,Joint Mobilizations,Manual Therapy, Patient/Caregiver Education, Self-Care/Home Management,Soft Tissue Mobilization,Taping, Therapeutic Activities, Therapeutic Exercises Modalities Biofeedback,Cold Pack/Ice Massage,Electric Stimulation, Hot Packs,Infrared Therapy, Paraffin Bath,Traction- Mechanical,Ultrasound Next Visit Focus/Plan Next Note Type Treatment Note Next Visit Plan review piriformis stretch add clamshell hip abd SL balance ex. Plan of Care Dates Plan of Care Start Date 06/19/21 Plan of Care End Date 07/19/21 Electronically Signed by: Liz Woodson PT 06/19/21 2121 Please Sign and Return: I have reviewed this Plan of Care and certify that the skilled therapy services above are required to meet the patient?s needs. Physician Signature Date Printed Name and Credentials Clinical Instructor Signature Printed Name and Credentials
--- NOTE | 2021-06-19 09:50 | PT.OTN ---
Current Diagnoses Pain in right knee (06/19/21) Physical Therapy Treatment Note PT-OP-A Visit Information Start: 04/29/21 12:08 Freq: Status: Active Protocol: Document 06/19/21 09:02 (Rec: 06/19/21 09:50 [id number]) Out-Patient Physical Therapy Visit Information Visit Information Visit Type Treatment Note Visit Start Time 09:03 Visit Stop Time 09:45 Total Visit Minutes 42 Visit Number 08/22 Number of JAMMER HOOKER Visits 0 PT-OP-B Current Condition Start: 04/29/21 12:08 Freq: Status: Active Protocol: Document 04/29/21 12:17 HH (Rec: 04/29/21 12:42 [email or web address]) Current Condition History of Current Condition Onset Date Nov, 2020 Current Complaints R lateral knee pain with radiating R hip pain, difficulty in sitting History of Current Condition Shola is a 65 yo male here for his R lateral knee pain and hip pain started this November. He began to notice his pain starts from posteriolateral side of R knee and it radiates to his R latearl calf and R lateral hip. His pain particularly gets worse with stepping on the gas pedal while driving and he often has to scoot himself and sit on his L side for pain relief. He also has numbness/ tingling sensation often after prolonged sitting. He notices walking and swimming tend to loose things up and his sleep is not affected at this point . Pt had a broken femur from an accident many years ago and did a traction unit for 6 weeks. Pt also states he walks 4-5 miles a day with a total of 12k steps. Prior Treatments and Tests x-ray for R knee 03/13/21 IMPRESSION: No trauma found. Slight narrowing of the medial compartment joint interspace indicating slight osteoarthritis in that area. LTKA = 15 years ago Treatment Goals Patient/Caregiver Goals 1. to relieve his R knee and hip pain 2. able to drive without discomfort Personal Factors Other Personal Factors That May Effect DM II Therapy/Recovery HTN PT-OP-C Subjective Start: 04/29/21 12:08 Freq: Status: Active Protocol: Document 06/19/21 09:02 (Rec: 06/19/21 09:50 [id number]) OP-PT Subjective Patient Comments Patient Comments Daxa doing pretty good. 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 Patient Reported Progress Improving PT-OP-D Balance Start: 04/29/21 12:08 Freq: Status: Active Protocol: Document 04/29/21 12:17 HH (Rec: 04/29/21 12:42 [email or web address]) Balance Tests Single Limb Standing Single Limb- Right 5,7,3 Single Limb- Left 24,21,22 PT-OP-F Manual Assessment Start: 04/29/21 12:08 Freq: Status: Active Protocol: Document 04/29/21 12:17 HH (Rec: 04/29/21 12:42 [email or web address]) Manual Assessments Soft Tissue Assessment Soft Tissue Mobility Assessment significant toncity at R piriformis, glute med and R lateral quad (distal) PT-OP-G Mobility & Gait Start: 04/29/21 12:08 Freq: Status: Active Protocol: Document 04/29/21 12:17 HH (Rec: 04/29/21 12:42 [email or web address]) OP Gait Assessment Gait Deviations General Gait Pattern Wide Based Gait Factors Limiting Gait Function Factors Limiting Gait Function Decreased Activity Tolerance, Decreased Strength,Limited Range of Motion,Pain,Poor Balance Comments Gait Comments pt stands and amb with a WBOS with increased WB on L side. PT-OP-J Posture/Palpation/Skin Start: 04/29/21 12:08 Freq: Status: Active Protocol: Document 04/29/21 12:17 HH (Rec: 04/29/21 12:42 [email or web address]) Posture Evaluation Position Standing Pelvis Posture Anteriorly Tilted Weight Distribution Decreased Wt.Bear on (R) Hip Posture (L) Externally Rotated,(R) Externally Rotated Knee Posture (L) Ext. Tibial Torsion,(R) Ext. Tibial Torsion PT-OP-K Range of Motion Start: 04/29/21 12:08 Freq: Status: Active Protocol: Document 04/29/21 12:17 HH (Rec: 04/29/21 12:42 [email or web address]) Hip Goniometric Range of Motion Hip Right Active Straight Leg Raise 50 Internal Rotation 18 External Rotation 58 Left Active Straight Leg Raise 50 Internal Rotation 28 External Rotation 60 Hip ROM Limitations Hip ROM Limitations Soft Tissue Tightness,Muscle Weakness PT-OP-L Special Tests Start: 04/29/21 12:08 Freq: Status: Active Protocol: Document 04/29/21 12:17 (Rec: 04/29/21 12:42 [email or web address]) Special Tests Lumbar Spine Special Tests Slump Test Results +VE R Comments R buttock pain with seated knee ext and DF Hip Special Tests Piriformis Test Results +VE R Comments significant tightness noted. MOE Test Results -ve Straight Leg Raise Test Results -ve Comments 50 degrees without pain Scour Test Test Results -ve Knee Special Tests Apley's Compression Test Results -ve Valgus- 0 Degrees Test Results -ve Varus- 0 Degrees Test Results -ve Valgus- 25 Degrees Test Results -ve Varus- 25 Degrees Test Results -ve PT-OP-M Strength Start: 04/29/21 12:08 Freq: Status: Active Protocol: Document 04/29/21 12:17 (Rec: 04/29/21 12:42 [email or web address]) Hip Strength Hip Manual Muscle Testing Right Flexion (L2) 4+ Good+ Extension (S1) 4+ Good+ Abduction 4+ Good+ Adduction 5 Normal Left Flexion (L2) 5 Normal Extension (S1) 5 Normal Abduction 5 Normal Adduction 5 Normal Knee Strength Knee Manual Muscle Testing Right Flexion (S2) 5 Normal Extension (L3) 5 Normal Left Flexion (S2) 5 Normal Extension (L3) 5 Normal PT-OP-Q Treatments Start: 04/29/21 12:08 Freq: Status: Active Protocol: Document 06/19/21 09:02 (Rec: 06/19/21 09:50 [id number]) Cardio Equipment Bicycle (Upright) Duration (Minutes) 6 Resistance 7 Seat Position 6 Other no radiating pain Therapeutic Exercises Supine Exercises SLR Side bilateral Reps/Minutes 10 x2 Comments discomfort at greater trochanteric region hip IR stretch Supine Exercise Name PT assisted Side right Sitting Exercises seated nerve glide Side bilateral Reps/Minutes 10 x2 Comments for HEP hip IR Side bilateral Equipment Used ball between knees Reps/Minutes 10 x2 Standing Exercises step up Reps/Minutes 10 x2 Comments cues on neutral foot hip abd Side right Reps/Minutes 5 x2 Comments pain at R hip after 5 reps donkey kick Standing Exercise Name cues on neutral foot. Reps/Minutes 10 x 2 Comments for HEP, no discomfort noted. Manual Therapy Treatment Soft Tissue Mobilization piriformis Mobilization Type Myofascial Release,Sustained Pressure,Trigger Point Release Intensity/Depth Moderate Body Position Sidelying Comments reduced pain noted R glute Mobilization Type Myofascial Release,Sustained Pressure,Trigger Point Release Intensity/Depth Moderate Body Position Sidelying PT-OP-T Assessment and Plan Start: 04/29/21 12:08 Freq: Status: Active Protocol: Document 06/19/21 09:02 (Rec: 06/19/21 09:50 [id number]) Physical Therapy Assessment Goals HEP Impairment pt does not ahve HEP Short Term Goal (STG) pt will be compliant to his HEP and complete them safely and independently. STG Duration 4 weeks College Intern Goal (LTG) 06/19 goal met pt has been compliant to his HEP daily. balance Impairment R= 3-7 s , L= >20s Short Term Goal (STG) 06/19 goal met pt shows improved hip stability and strength to be able to maintain standing on R leg >10 s STG Duration 4 weeks Correction Goal (LTG) pt will show improved hip stability and strength to be able to maintain standing on R leg >20s, therefore he can complete stair climbing/ walking without compensation LTG Duration 8 weeks pain Impairment pt has consistent pain 5/10 for R knee and hip Short Term Goal (STG) 06/19 pt is able to tolerate driving >30-45 mins without the need to come off pt will have pain no more than 3/10 for both R knee and R hip while driving STG Duration 4 weeks Correction Goal (LTG) pt will have painfree for both R knee and R hip while driving and after a prolonged period of sitting LTG Duration 8weeks Assessment Summary Assessment pt hasnt driven lately and he is doing good. Pt at this point has good awareness of his foot position during gait and driving. I also Added seated sciatic nerve glide today. Pt overall shows improved hip strength and activity tolerance and it will be benefitical to continue therapy for 1 more month to focus on sciatic nerve desensitization, SL balance and overall hip srength Physical Therapy Plan Frequency and Duration Frequency of Treatment 1x/Week Duration of Treatment 4 weeks Plan of Care Start Date 06/19/21 Plan of Care End Date 07/19/21 Therapeutic Interventions Therapeutic Interventions Aquatic Therapy,Balance Training,Gait Training,Home Exercise Program,Joint Mobilizations,Manual Therapy, Patient/Caregiver Education, Self-Care/Home Management,Soft Tissue Mobilization,Taping, Therapeutic Activities, Therapeutic Exercises Modalities Biofeedback,Cold Pack/Ice Massage,Electric Stimulation, Hot Packs,Infrared Therapy, Paraffin Bath,Traction- Mechanical,Ultrasound Next Visit Focus/Plan Next Note Type Treatment Note Next Visit Plan review piriformis stretch add clamshell hip abd SL balance ex.
--- NOTE | 2021-07-10 12:26 | PT.OTN ---
Current Diagnoses Pain in right knee (07/10/21) Physical Therapy Treatment Note PT-OP-A Visit Information Start: 04/29/21 12:08 Freq: Status: Active Protocol: Document 07/10/21 09:02 (Rec: 07/10/21 12:26 [id number]) Out-Patient Physical Therapy Visit Information Visit Information Visit Type Treatment Note Visit Start Time 09:01 Visit Stop Time 09:45 Total Visit Minutes 44 Visit Number 09/21 Number of REAL ESTATE BRANCH MANAGER Visits 0 PT-OP-B Current Condition Start: 04/29/21 12:08 Freq: Status: Active Protocol: Document 04/29/21 12:17 HH (Rec: 04/29/21 12:42 [email or web address]) Current Condition History of Current Condition Onset Date Nov, 2020 Current Complaints R lateral knee pain with radiating R hip pain, difficulty in sitting History of Current Condition Shola is a 65 yo male here for his R lateral knee pain and hip pain started this November. He began to notice his pain starts from posteriolateral side of R knee and it radiates to his R latearl calf and R lateral hip. His pain particularly gets worse with stepping on the gas pedal while driving and he often has to scoot himself and sit on his L side for pain relief. He also has numbness/ tingling sensation often after prolonged sitting. He notices walking and swimming tend to loose things up and his sleep is not affected at this point . Pt had a broken femur from an accident many years ago and did a traction unit for 6 weeks. Pt also states he walks 4-5 miles a day with a total of 12k steps. Prior Treatments and Tests x-ray for R knee 03/13/21 IMPRESSION: No trauma found. Slight narrowing of the medial compartment joint interspace indicating slight osteoarthritis in that area. LTKA = 15 years ago Treatment Goals Patient/Caregiver Goals 1. to relieve his R knee and hip pain 2. able to drive without discomfort Personal Factors Other Personal Factors That May Effect DM II Therapy/Recovery HTN PT-OP-C Subjective Start: 04/29/21 12:08 Freq: Status: Active Protocol: Document 07/10/21 09:02 (Rec: 07/10/21 12:26 [id number]) OP-PT Subjective Patient Comments Patient Comments I got a little sore here and there. I was able to drive 30- 45 mins without trouble but there's times that my hip bothers me. Patient Reported Progress Same PT-OP-D Balance Start: 04/29/21 12:08 Freq: Status: Active Protocol: Document 04/29/21 12:17 HH (Rec: 04/29/21 12:42 [email or web address]) Balance Tests Single Limb Standing Single Limb- Right 5,7,3 Single Limb- Left 24,21,22 PT-OP-F Manual Assessment Start: 04/29/21 12:08 Freq: Status: Active Protocol: Document 04/29/21 12:17 HH (Rec: 04/29/21 12:42 [email or web address]) Manual Assessments Soft Tissue Assessment Soft Tissue Mobility Assessment significant toncity at R piriformis, glute med and R lateral quad (distal) PT-OP-G Mobility & Gait Start: 04/29/21 12:08 Freq: Status: Active Protocol: Document 04/29/21 12:17 HH (Rec: 04/29/21 12:42 [email or web address]) OP Gait Assessment Gait Deviations General Gait Pattern Wide Based Gait Factors Limiting Gait Function Factors Limiting Gait Function Decreased Activity Tolerance, Decreased Strength,Limited Range of Motion,Pain,Poor Balance Comments Gait Comments pt stands and amb with a WBOS with increased WB on L side. PT-OP-J Posture/Palpation/Skin Start: 04/29/21 12:08 Freq: Status: Active Protocol: Document 04/29/21 12:17 HH (Rec: 04/29/21 12:42 [email or web address]) Posture Evaluation Position Standing Pelvis Posture Anteriorly Tilted Weight Distribution Decreased Wt.Bear on (R) Hip Posture (L) Externally Rotated,(R) Externally Rotated Knee Posture (L) Ext. Tibial Torsion,(R) Ext. Tibial Torsion PT-OP-K Range of Motion Start: 04/29/21 12:08 Freq: Status: Active Protocol: Document 04/29/21 12:17 HH (Rec: 04/29/21 12:42 [email or web address]) Hip Goniometric Range of Motion Hip Right Active Straight Leg Raise 50 Internal Rotation 18 External Rotation 58 Left Active Straight Leg Raise 50 Internal Rotation 28 External Rotation 60 Hip ROM Limitations Hip ROM Limitations Soft Tissue Tightness,Muscle Weakness PT-OP-L Special Tests Start: 04/29/21 12:08 Freq: Status: Active Protocol: Document 04/29/21 12:17 (Rec: 04/29/21 12:42 [email or web address]) Special Tests Lumbar Spine Special Tests Slump Test Results +VE R Comments R buttock pain with seated knee ext and DF Hip Special Tests Piriformis Test Results +VE R Comments significant tightness noted. MOE Test Results -ve Straight Leg Raise Test Results -ve Comments 50 degrees without pain Scour Test Test Results -ve Knee Special Tests Apley's Compression Test Results -ve Valgus- 0 Degrees Test Results -ve Varus- 0 Degrees Test Results -ve Valgus- 25 Degrees Test Results -ve Varus- 25 Degrees Test Results -ve PT-OP-M Strength Start: 04/29/21 12:08 Freq: Status: Active Protocol: Document 04/29/21 12:17 (Rec: 04/29/21 12:42 [email or web address]) Hip Strength Hip Manual Muscle Testing Right Flexion (L2) 4+ Good+ Extension (S1) 4+ Good+ Abduction 4+ Good+ Adduction 5 Normal Left Flexion (L2) 5 Normal Extension (S1) 5 Normal Abduction 5 Normal Adduction 5 Normal Knee Strength Knee Manual Muscle Testing Right Flexion (S2) 5 Normal Extension (L3) 5 Normal Left Flexion (S2) 5 Normal Extension (L3) 5 Normal PT-OP-Q Treatments Start: 04/29/21 12:08 Freq: Status: Active Protocol: Document 07/10/21 09:02 (Rec: 07/10/21 12:26 [id number]) Cardio Equipment Bicycle (Upright) Duration (Minutes) 6 Resistance 7 Seat Position 6 Other no radiating pain Gym Equipment Cable Column (Body Solid) HS curl Details R Resistance 30lbs Reps/Time 10 x2 Therapeutic Exercises Sitting Exercises seated HS curl Resistance level 3 band Reps/Minutes 10 x2 Comments for HEP Standing Exercises hip abd Side right Reps/Minutes 5 x2 Comments pain at R hip after 5 reps donkey kick Standing Exercise Name cues on neutral foot. Reps/Minutes 10 x 2 Comments for HEP, no discomfort noted. Manual Therapy Treatment Soft Tissue Mobilization hamstrings Body Location lateral hamstrings Mobilization Type Sustained Pressure,Trigger Point Release Intensity/Depth Moderate Body Position Supine Comments tenderness noted but redcued after STM PT-OP-T Assessment and Plan Start: 04/29/21 12:08 Freq: Status: Active Protocol: Document 07/10/21 09:02 (Rec: 07/10/21 12:26 [id number]) Physical Therapy Assessment Goals HEP Impairment pt does not ahve HEP Short Term Goal (STG) pt will be compliant to his HEP and complete them safely and independently. STG Duration 4 weeks [facility] Goal (LTG) 06/19 goal met pt has been compliant to his HEP daily. balance Impairment R= 3-7 s , L= >20s Short Term Goal (STG) 06/19 goal met pt shows improved hip stability and strength to be able to maintain standing on R leg >10 s STG Duration 4 weeks Heel [place]er Goal (LTG) 07/10 goal met L= 32s, R= 31s pt shows improved hip stability and strength to be able to maintain standing on R leg >20s, therefore he can complete stair climbing/ walking without compensation LTG Duration 8 weeks pain Impairment pt has consistent pain 5/10 for R knee and hip Short Term Goal (STG) 06/19 pt is able to tolerate driving >30-45 mins without the need to come off pt will have pain no more than 3/10 for both R knee and R hip while driving STG Duration 4 weeks Heel [place]er Goal (LTG) 07/10 pt currently still has inconsistent hip/ knee soreness from prolonged sitting in the car. pt will have painfree for both R knee and R hip while driving and after a prolonged period of sitting LTG Duration 8weeks Assessment Summary Assessment pt hasnt driven lately but did have localized posterior knee pain once. His pain was reproduced with end range knee flexion and resisted knee flexion. This could be an indication of R knee OA/ hamstring tendonitis. Added seated HS curl and will f/u next visit. Physical Therapy Plan Frequency and Duration Frequency of Treatment 1x/Week Duration of Treatment 4 weeks Plan of Care Start Date 06/19/21 Plan of Care End Date 07/19/21 Therapeutic Interventions Therapeutic Interventions Aquatic Therapy,Balance Training,Gait Training,Home Exercise Program,Joint Mobilizations,Manual Therapy, Patient/Caregiver Education, Self-Care/Home Management,Soft Tissue Mobilization,Taping, Therapeutic Activities, Therapeutic Exercises Modalities Biofeedback,Cold Pack/Ice Massage,Electric Stimulation, Hot Packs,Infrared Therapy, Paraffin Bath,Traction- Mechanical,Ultrasound Next Visit Focus/Plan Next Note Type Treatment Note Next Visit Plan review piriformis stretch add clamshell hip abd SL balance ex.
--- NOTE | 2021-07-17 12:22 | PT.OTN ---
Current Diagnoses Pain in right knee (07/17/21) Physical Therapy Treatment Note PT-OP-A Visit Information Start: 04/29/21 12:08 Freq: Status: Active Protocol: Document 07/17/21 09:04 (Rec: 07/17/21 12:22 [id number]) Out-Patient Physical Therapy Visit Information Visit Information Visit Type Progress Note Visit Start Time 09:01 Visit Stop Time 09:45 Total Visit Minutes 44 Visit Number 10/22 Number of RUG CUTTER HELPER Visits 0 PT-OP-B Current Condition Start: 04/29/21 12:08 Freq: Status: Active Protocol: Document 04/29/21 12:17 HH (Rec: 04/29/21 12:42 [email or web address]) Current Condition History of Current Condition Onset Date Nov, 2020 Current Complaints R lateral knee pain with radiating R hip pain, difficulty in sitting History of Current Condition Shola is a 65 yo male here for his R lateral knee pain and hip pain started this November. He began to notice his pain starts from posteriolateral side of R knee and it radiates to his R latearl calf and R lateral hip. His pain particularly gets worse with stepping on the gas pedal while driving and he often has to scoot himself and sit on his L side for pain relief. He also has numbness/ tingling sensation often after prolonged sitting. He notices walking and swimming tend to loose things up and his sleep is not affected at this point . Pt had a broken femur from an accident many years ago and did a traction unit for 6 weeks. Pt also states he walks 4-5 miles a day with a total of 12k steps. Prior Treatments and Tests x-ray for R knee 03/13/21 IMPRESSION: No trauma found. Slight narrowing of the medial compartment joint interspace indicating slight osteoarthritis in that area. LTKA = 15 years ago Treatment Goals Patient/Caregiver Goals 1. to relieve his R knee and hip pain 2. able to drive without discomfort Personal Factors Other Personal Factors That May Effect DM II Therapy/Recovery HTN PT-OP-C Subjective Start: 04/29/21 12:08 Freq: Status: Active Protocol: Document 07/17/21 09:04 HH (Rec: 07/17/21 12:22 [id number]) OP-PT Subjective Patient Comments Patient Comments I drove to [place] on thursday and my hip was sore even at the front part. Patient Reported Progress Same PT-OP-D Balance Start: 04/29/21 12:08 Freq: Status: Active Protocol: Document 04/29/21 12:17 HH (Rec: 04/29/21 12:42 [email or web address]) Balance Tests Single Limb Standing Single Limb- Right 5,7,3 Single Limb- Left 24,21,22 PT-OP-F Manual Assessment Start: 04/29/21 12:08 Freq: Status: Active Protocol: Document 04/29/21 12:17 HH (Rec: 04/29/21 12:42 [email or web address]) Manual Assessments Soft Tissue Assessment Soft Tissue Mobility Assessment significant toncity at R piriformis, glute med and R lateral quad (distal) PT-OP-G Mobility & Gait Start: 04/29/21 12:08 Freq: Status: Active Protocol: Document 04/29/21 12:17 HH (Rec: 04/29/21 12:42 [email or web address]) OP Gait Assessment Gait Deviations General Gait Pattern Wide Based Gait Factors Limiting Gait Function Factors Limiting Gait Function Decreased Activity Tolerance, Decreased Strength,Limited Range of Motion,Pain,Poor Balance Comments Gait Comments pt stands and amb with a WBOS with increased WB on L side. PT-OP-J Posture/Palpation/Skin Start: 04/29/21 12:08 Freq: Status: Active Protocol: Document 04/29/21 12:17 HH (Rec: 04/29/21 12:42 [email or web address]) Posture Evaluation Position Standing Pelvis Posture Anteriorly Tilted Weight Distribution Decreased Wt.Bear on (R) Hip Posture (L) Externally Rotated,(R) Externally Rotated Knee Posture (L) Ext. Tibial Torsion,(R) Ext. Tibial Torsion PT-OP-K Range of Motion Start: 04/29/21 12:08 Freq: Status: Active Protocol: Document 04/29/21 12:17 HH (Rec: 04/29/21 12:42 [email or web address]) Hip Goniometric Range of Motion Hip Right Active Straight Leg Raise 50 Internal Rotation 18 External Rotation 58 Left Active Straight Leg Raise 50 Internal Rotation 28 External Rotation 60 Hip ROM Limitations Hip ROM Limitations Soft Tissue Tightness,Muscle Weakness PT-OP-L Special Tests Start: 04/29/21 12:08 Freq: Status: Active Protocol: Document 04/29/21 12:17 (Rec: 04/29/21 12:42 [email or web address]) Special Tests Lumbar Spine Special Tests Slump Test Results +VE R Comments R buttock pain with seated knee ext and DF Hip Special Tests Piriformis Test Results +VE R Comments significant tightness noted. MOE Test Results -ve Straight Leg Raise Test Results -ve Comments 50 degrees without pain Scour Test Test Results -ve Knee Special Tests Apley's Compression Test Results -ve Valgus- 0 Degrees Test Results -ve Varus- 0 Degrees Test Results -ve Valgus- 25 Degrees Test Results -ve Varus- 25 Degrees Test Results -ve PT-OP-M Strength Start: 04/29/21 12:08 Freq: Status: Active Protocol: Document 04/29/21 12:17 (Rec: 04/29/21 12:42 [email or web address]) Hip Strength Hip Manual Muscle Testing Right Flexion (L2) 4+ Good+ Extension (S1) 4+ Good+ Abduction 4+ Good+ Adduction 5 Normal Left Flexion (L2) 5 Normal Extension (S1) 5 Normal Abduction 5 Normal Adduction 5 Normal Knee Strength Knee Manual Muscle Testing Right Flexion (S2) 5 Normal Extension (L3) 5 Normal Left Flexion (S2) 5 Normal Extension (L3) 5 Normal PT-OP-Q Treatments Start: 04/29/21 12:08 Freq: Status: Active Protocol: Document 07/17/21 09:04 (Rec: 07/17/21 12:22 [id number]) Therapeutic Exercises Standing Exercises weight shift Standing Exercise Name stagger stance Side right Reps/Minutes 20 times Comments cues on pronation and supination calf stretch Reps/Minutes 15 sec x 5 Comments for HEP Manual Therapy Treatment Soft Tissue Mobilization R lateral calf Body Location peroneals and gastro Mobilization Type Myofascial Release,Sustained Pressure,Trigger Point Release Intensity/Depth Moderate Body Position Prone hamstrings Body Location lateral hamstrings Mobilization Type Sustained Pressure,Trigger Point Release Intensity/Depth Moderate Body Position Prone Comments tenderness noted but redcued after STM Joint Mobilizations R ankle Joint calcanueal eversion and mid foot pronation Body Position Supine PT-OP-T Assessment and Plan Start: 04/29/21 12:08 Freq: Status: Active Protocol: Document 07/17/21 09:04 (Rec: 07/17/21 12:22 HH [id number]) Physical Therapy Assessment Goals HEP Impairment pt does not ahve HEP Short Term Goal (STG) pt will be compliant to his HEP and complete them safely and independently. STG Duration 4 weeks Prison Goal (LTG) 06/19 goal met pt has been compliant to his HEP daily. balance Impairment R= 3-7 s , L= >20s Short Term Goal (STG) 06/19 goal met pt shows improved hip stability and strength to be able to maintain standing on R leg >10 s STG Duration 4 weeks Prison Goal (LTG) 07/10 goal met L= 32s, R= 31s pt shows improved hip stability and strength to be able to maintain standing on R leg >20s, therefore he can complete stair climbing/ walking without compensation LTG Duration 8 weeks pain Impairment pt has consistent pain 5/10 for R knee and hip Short Term Goal (STG) 06/19 pt is able to tolerate driving >30-45 mins without the need to come off pt will have pain no more than 3/10 for both R knee and R hip while driving STG Duration 4 weeks Prison Goal (LTG) 07/10 pt currently still has inconsistent hip/ knee soreness from prolonged sitting in the car. pt will have painfree for both R knee and R hip while driving and after a prolonged period of sitting LTG Duration 8weeks Assessment Summary Assessment pt has a flare up a few days ago with soreness at R hip joint and lateral knee. Gait anaylsis today and noticed pt' s heel strike primarily on lateral heel and midfoot which possibly causes excessive mechanical pressure to his R knee and hip. Performed manual therapy on his lateral line of RLE and added calf stretch and weight shift with pronation. Although pt has been plateaued recently, I believe pt will continue benefit from skilled therapy to address his gait mechanics to reduce pressure at his R lateral LE. Physical Therapy Plan Frequency and Duration Frequency of Treatment 1x/Week Duration of Treatment 6 weeks Plan of Care Start Date 07/17/21 Plan of Care End Date 08/31/21 Therapeutic Interventions Therapeutic Interventions Aquatic Therapy,Balance Training,Gait Training,Home Exercise Program,Joint Mobilizations,Manual Therapy, Patient/Caregiver Education, Self-Care/Home Management,Soft Tissue Mobilization,Taping, Therapeutic Activities, Therapeutic Exercises Modalities Biofeedback,Cold Pack/Ice Massage,Electric Stimulation, Hot Packs,Infrared Therapy, Paraffin Bath,Traction- Mechanical,Ultrasound Next Visit Focus/Plan Next Note Type Treatment Note Next Visit Plan review piriformis stretch add clamshell hip abd SL balance ex.
--- NOTE | 2021-07-17 12:22 | PT.OPPOC ---
Physical, Occupational & Speech Therapy At [facility] Current Diagnoses Pain in right knee (07/17/21) Visit Care Team Role Provider Type Emir Mckeon MD Attending Provider Physician Primary Care Provider Referring Provider Specialty: Internal Medicine Address: [address] [place] [address], [address], [address] Email: [email or web address] Plan Of Care PT-OP-T Assessment and Plan Start: 04/29/21 12:08 Freq: Status: Active Protocol: Document 07/17/21 09:04 HH (Rec: 07/17/21 12:22 HH [id number]) Physical Therapy Assessment Goals HEP Impairment pt does not ahve HEP Short Term Goal (STG) pt will be compliant to his HEP and complete them safely and independently. STG Duration 4 weeks Half-Way Goal (LTG) 06/19 goal met pt has been compliant to his HEP daily. balance Impairment R= 3-7 s , L= >20s Short Term Goal (STG) 06/19 goal met pt shows improved hip stability and strength to be able to maintain standing on R leg >10 s STG Duration 4 weeks Machine Group Leader Goal (LTG) 07/10 goal met L= 32s, R= 31s pt shows improved hip stability and strength to be able to maintain standing on R leg >20s, therefore he can complete stair climbing/ walking without compensation LTG Duration 8 weeks pain Impairment pt has consistent pain 5/10 for R knee and hip Short Term Goal (STG) 06/19 pt is able to tolerate driving >30-45 mins without the need to come off pt will have pain no more than 3/10 for both R knee and R hip while driving STG Duration 4 weeks Half-Way Goal (LTG) 07/10 pt currently still has inconsistent hip/ knee soreness from prolonged sitting in the car. pt will have painfree for both R knee and R hip while driving and after a prolonged period of sitting LTG Duration 8weeks Assessment Summary Assessment pt has a flare up a few days ago with soreness at R hip joint and lateral knee. Gait anaylsis today and noticed pt' s heel strike primarily on lateral heel and midfoot which possibly causes excessive mechanical pressure to his R knee and hip. Performed manual therapy on his lateral line of RLE and added calf stretch and weight shift with pronation. Although pt has been plateaued recently, I believe pt will continue benefit from skilled therapy to address his gait mechanics to reduce pressure at his R lateral LE. Physical Therapy Plan Frequency and Duration Frequency of Treatment 1x/Week Duration of Treatment 6 weeks Plan of Care Start Date 07/17/21 Plan of Care End Date 08/31/21 Therapeutic Interventions Therapeutic Interventions Aquatic Therapy,Balance Training,Gait Training,Home Exercise Program,Joint Mobilizations,Manual Therapy, Patient/Caregiver Education, Self-Care/Home Management,Soft Tissue Mobilization,Taping, Therapeutic Activities, Therapeutic Exercises Modalities Biofeedback,Cold Pack/Ice Massage,Electric Stimulation, Hot Packs,Infrared Therapy, Paraffin Bath,Traction- Mechanical,Ultrasound Next Visit Focus/Plan Next Note Type Treatment Note Next Visit Plan review piriformis stretch add clamshell hip abd SL balance ex. Plan of Care Dates Plan of Care Start Date 07/17/21 Plan of Care End Date 08/31/21 Electronically Signed by: Liz Woodson PT 07/17/21 [id number] Please Sign and Return: I have reviewed this Plan of Care and certify that the skilled therapy services above are required to meet the patient?s needs. Physician Signature Date Printed Name and Credentials Clinical Instructor Signature Printed Name and Credentials
--- NOTE | 2021-07-24 11:20 | PT.OTN ---
Current Diagnoses Pain in right knee (07/24/21) Physical Therapy Treatment Note PT-OP-A Visit Information Start: 04/29/21 12:08 Freq: Status: Active Protocol: Document 07/24/21 10:32 HH (Rec: 07/24/21 11:20 [id number]) Out-Patient Physical Therapy Visit Information Visit Information Visit Type Treatment Note Visit Start Time 10:32 Visit Stop Time 11:15 Total Visit Minutes 43 Visit Number 11/21 Number of FILAMENT SHAPER Visits 0 PT-OP-B Current Condition Start: 04/29/21 12:08 Freq: Status: Active Protocol: Document 04/29/21 12:17 HH (Rec: 04/29/21 12:42 [email or web address]) Current Condition History of Current Condition Onset Date Nov, 2020 Current Complaints R lateral knee pain with radiating R hip pain, difficulty in sitting History of Current Condition Shola is a 65 yo male here for his R lateral knee pain and hip pain started this November. He began to notice his pain starts from posteriolateral side of R knee and it radiates to his R latearl calf and R lateral hip. His pain particularly gets worse with stepping on the gas pedal while driving and he often has to scoot himself and sit on his L side for pain relief. He also has numbness/ tingling sensation often after prolonged sitting. He notices walking and swimming tend to loose things up and his sleep is not affected at this point . Pt had a broken femur from an accident many years ago and did a traction unit for 6 weeks. Pt also states he walks 4-5 miles a day with a total of 12k steps. Prior Treatments and Tests x-ray for R knee 03/13/21 IMPRESSION: No trauma found. Slight narrowing of the medial compartment joint interspace indicating slight osteoarthritis in that area. LTKA = 15 years ago Treatment Goals Patient/Caregiver Goals 1. to relieve his R knee and hip pain 2. able to drive without discomfort Personal Factors Other Personal Factors That May Effect DM II Therapy/Recovery HTN PT-OP-C Subjective Start: 04/29/21 12:08 Freq: Status: Active Protocol: Document 07/24/21 10:32 HH (Rec: 07/24/21 11:20 [id number]) OP-PT Subjective Patient Comments Patient Comments I drove to [place] and i felt great. My hip is doing better. Patient Reported Progress Improving PT-OP-D Balance Start: 04/29/21 12:08 Freq: Status: Active Protocol: Document 04/29/21 12:17 HH (Rec: 04/29/21 12:42 [email or web address]) Balance Tests Single Limb Standing Single Limb- Right 5,7,3 Single Limb- Left 24,21,22 PT-OP-F Manual Assessment Start: 04/29/21 12:08 Freq: Status: Active Protocol: Document 04/29/21 12:17 HH (Rec: 04/29/21 12:42 [email or web address]) Manual Assessments Soft Tissue Assessment Soft Tissue Mobility Assessment significant toncity at R piriformis, glute med and R lateral quad (distal) PT-OP-G Mobility & Gait Start: 04/29/21 12:08 Freq: Status: Active Protocol: Document 04/29/21 12:17 HH (Rec: 04/29/21 12:42 [email or web address]) OP Gait Assessment Gait Deviations General Gait Pattern Wide Based Gait Factors Limiting Gait Function Factors Limiting Gait Function Decreased Activity Tolerance, Decreased Strength,Limited Range of Motion,Pain,Poor Balance Comments Gait Comments pt stands and amb with a WBOS with increased WB on L side. PT-OP-J Posture/Palpation/Skin Start: 04/29/21 12:08 Freq: Status: Active Protocol: Document 04/29/21 12:17 HH (Rec: 04/29/21 12:42 [email or web address]) Posture Evaluation Position Standing Pelvis Posture Anteriorly Tilted Weight Distribution Decreased Wt.Bear on (R) Hip Posture (L) Externally Rotated,(R) Externally Rotated Knee Posture (L) Ext. Tibial Torsion,(R) Ext. Tibial Torsion PT-OP-K Range of Motion Start: 04/29/21 12:08 Freq: Status: Active Protocol: Document 04/29/21 12:17 HH (Rec: 04/29/21 12:42 [email or web address]) Hip Goniometric Range of Motion Hip Right Active Straight Leg Raise 50 Internal Rotation 18 External Rotation 58 Left Active Straight Leg Raise 50 Internal Rotation 28 External Rotation 60 Hip ROM Limitations Hip ROM Limitations Soft Tissue Tightness,Muscle Weakness PT-OP-L Special Tests Start: 04/29/21 12:08 Freq: Status: Active Protocol: Document 04/29/21 12:17 HH (Rec: 04/29/21 12:42 [email or web address]) Special Tests Lumbar Spine Special Tests Slump Test Results +VE R Comments R buttock pain with seated knee ext and DF Hip Special Tests Piriformis Test Results +VE R Comments significant tightness noted. MOE Test Results -ve Straight Leg Raise Test Results -ve Comments 50 degrees without pain Scour Test Test Results -ve Knee Special Tests Apley's Compression Test Results -ve Valgus- 0 Degrees Test Results -ve Varus- 0 Degrees Test Results -ve Valgus- 25 Degrees Test Results -ve Varus- 25 Degrees Test Results -ve PT-OP-M Strength Start: 04/29/21 12:08 Freq: Status: Active Protocol: Document 04/29/21 12:17 (Rec: 04/29/21 12:42 [email or web address]) Hip Strength Hip Manual Muscle Testing Right Flexion (L2) 4+ Good+ Extension (S1) 4+ Good+ Abduction 4+ Good+ Adduction 5 Normal Left Flexion (L2) 5 Normal Extension (S1) 5 Normal Abduction 5 Normal Adduction 5 Normal Knee Strength Knee Manual Muscle Testing Right Flexion (S2) 5 Normal Extension (L3) 5 Normal Left Flexion (S2) 5 Normal Extension (L3) 5 Normal PT-OP-Q Treatments Start: 04/29/21 12:08 Freq: Status: Active Protocol: Document 07/24/21 10:32 (Rec: 07/24/21 11:20 [id number]) Cardio Equipment Bicycle (Upright) Duration (Minutes) 6 Resistance 7 Seat Position 6 Other no radiating pain Therapeutic Exercises Standing Exercises weight shift Standing Exercise Name stagger stance Side right Reps/Minutes 20 times Comments cues on pronation and supination calf stretch Reps/Minutes 15 sec x 5 Comments for HEP Gait Training Gait Activity heel strike and preswing Level of Assistance UE support on R bar Surface ground level Comments cues on R ankle pronation from stance phase to preswing. Manual Therapy Treatment Soft Tissue Mobilization R lateral calf Body Location peroneals and gastro Mobilization Type Myofascial Release,Sustained Pressure,Trigger Point Release Intensity/Depth Moderate Body Position Prone Joint Mobilizations R ankle Joint calcanueal eversion and mid foot pronation Body Position Supine Comments no pain to R knee and hip today PT-OP-T Assessment and Plan Start: 04/29/21 12:08 Freq: Status: Active Protocol: Document 07/24/21 10:32 (Rec: 07/24/21 11:20 [id number]) Physical Therapy Assessment Goals HEP Impairment pt does not ahve HEP Short Term Goal (STG) pt will be compliant to his HEP and complete them safely and independently. STG Duration 4 weeks Transportation Broker Goal (LTG) 06/19 goal met pt has been compliant to his HEP daily. balance Impairment R= 3-7 s , L= >20s Short Term Goal (STG) 06/19 goal met pt shows improved hip stability and strength to be able to maintain standing on R leg >10 s STG Duration 4 weeks Transportation Broker Goal (LTG) 07/10 goal met L= 32s, R= 31s pt shows improved hip stability and strength to be able to maintain standing on R leg >20s, therefore he can complete stair climbing/ walking without compensation LTG Duration 8 weeks pain Impairment pt has consistent pain 5/10 for R knee and hip Short Term Goal (STG) 06/19 pt is able to tolerate driving >30-45 mins without the need to come off pt will have pain no more than 3/10 for both R knee and R hip while driving STG Duration 4 weeks Transportation Broker Goal (LTG) 07/10 pt currently still has inconsistent hip/ knee soreness from prolonged sitting in the car. pt will have painfree for both R knee and R hip while driving and after a prolonged period of sitting LTG Duration 8weeks Assessment Summary Assessment pt has improved symptoms since last visit. He has better calcanueal eversion and pronation mobility. Did gait training on heel stirke to preswing by utilizing pronation and toe push off. Physical Therapy Plan Frequency and Duration Frequency of Treatment 1x/Week Duration of Treatment 6 weeks Plan of Care Start Date 07/17/21 Plan of Care End Date 08/31/21 Therapeutic Interventions Therapeutic Interventions Aquatic Therapy,Balance Training,Gait Training,Home Exercise Program,Joint Mobilizations,Manual Therapy, Patient/Caregiver Education, Self-Care/Home Management,Soft Tissue Mobilization,Taping, Therapeutic Activities, Therapeutic Exercises Modalities Biofeedback,Cold Pack/Ice Massage,Electric Stimulation, Hot Packs,Infrared Therapy, Paraffin Bath,Traction- Mechanical,Ultrasound Next Visit Focus/Plan Next Note Type Treatment Note Next Visit Plan test SLS, gait training
--- NOTE | 2021-07-31 12:07 | PT.OTN ---
Current Diagnoses Pain in right knee (07/31/21) Physical Therapy Treatment Note PT-OP-A Visit Information Start: 04/29/21 12:08 Freq: Status: Active Protocol: Document 07/31/21 11:08 (Rec: 07/31/21 12:07 [id number]) Out-Patient Physical Therapy Visit Information Visit Information Visit Type Treatment Note Visit Start Time 11:15 Visit Stop Time 12:00 Total Visit Minutes 45 Visit Number 13/30 Number of BUS WASHER Visits 0 PT-OP-B Current Condition Start: 04/29/21 12:08 Freq: Status: Active Protocol: Document 04/29/21 12:17 HH (Rec: 04/29/21 12:42 [email or web address]) Current Condition History of Current Condition Onset Date Nov, 2020 Current Complaints R lateral knee pain with radiating R hip pain, difficulty in sitting History of Current Condition Shola is a 65 yo male here for his R lateral knee pain and hip pain started this November. He began to notice his pain starts from posteriolateral side of R knee and it radiates to his R latearl calf and R lateral hip. His pain particularly gets worse with stepping on the gas pedal while driving and he often has to scoot himself and sit on his L side for pain relief. He also has numbness/ tingling sensation often after prolonged sitting. He notices walking and swimming tend to loose things up and his sleep is not affected at this point . Pt had a broken femur from an accident many years ago and did a traction unit for 6 weeks. Pt also states he walks 4-5 miles a day with a total of 12k steps. Prior Treatments and Tests x-ray for R knee 03/13/21 IMPRESSION: No trauma found. Slight narrowing of the medial compartment joint interspace indicating slight osteoarthritis in that area. LTKA = 15 years ago Treatment Goals Patient/Caregiver Goals 1. to relieve his R knee and hip pain 2. able to drive without discomfort Personal Factors Other Personal Factors That May Effect DM II Therapy/Recovery HTN PT-OP-C Subjective Start: 04/29/21 12:08 Freq: Status: Active Protocol: Document 07/31/21 11:08 HH (Rec: 07/31/21 12:07 [id number]) OP-PT Subjective Patient Comments Patient Comments My hip is doing well and i was in a car for a total 3 hours the other day and i felt fine. But i do feel stiff with my ankles from walking differently now. Patient Reported Progress Improving PT-OP-D Balance Start: 04/29/21 12:08 Freq: Status: Active Protocol: Document 04/29/21 12:17 HH (Rec: 04/29/21 12:42 [email or web address]) Balance Tests Single Limb Standing Single Limb- Right 5,7,3 Single Limb- Left 24,21,22 PT-OP-F Manual Assessment Start: 04/29/21 12:08 Freq: Status: Active Protocol: Document 04/29/21 12:17 HH (Rec: 04/29/21 12:42 [email or web address]) Manual Assessments Soft Tissue Assessment Soft Tissue Mobility Assessment significant toncity at R piriformis, glute med and R lateral quad (distal) PT-OP-G Mobility & Gait Start: 04/29/21 12:08 Freq: Status: Active Protocol: Document 04/29/21 12:17 HH (Rec: 04/29/21 12:42 [email or web address]) OP Gait Assessment Gait Deviations General Gait Pattern Wide Based Gait Factors Limiting Gait Function Factors Limiting Gait Function Decreased Activity Tolerance, Decreased Strength,Limited Range of Motion,Pain,Poor Balance Comments Gait Comments pt stands and amb with a WBOS with increased WB on L side. PT-OP-J Posture/Palpation/Skin Start: 04/29/21 12:08 Freq: Status: Active Protocol: Document 04/29/21 12:17 HH (Rec: 04/29/21 12:42 [email or web address]) Posture Evaluation Position Standing Pelvis Posture Anteriorly Tilted Weight Distribution Decreased Wt.Bear on (R) Hip Posture (L) Externally Rotated,(R) Externally Rotated Knee Posture (L) Ext. Tibial Torsion,(R) Ext. Tibial Torsion PT-OP-K Range of Motion Start: 04/29/21 12:08 Freq: Status: Active Protocol: Document 04/29/21 12:17 HH (Rec: 04/29/21 12:42 [email or web address]) Hip Goniometric Range of Motion Hip Right Active Straight Leg Raise 50 Internal Rotation 18 External Rotation 58 Left Active Straight Leg Raise 50 Internal Rotation 28 External Rotation 60 Hip ROM Limitations Hip ROM Limitations Soft Tissue Tightness,Muscle Weakness PT-OP-L Special Tests Start: 04/29/21 12:08 Freq: Status: Active Protocol: Document 04/29/21 12:17 (Rec: 04/29/21 12:42 [email or web address]) Special Tests Lumbar Spine Special Tests Slump Test Results +VE R Comments R buttock pain with seated knee ext and DF Hip Special Tests Piriformis Test Results +VE R Comments significant tightness noted. MOE Test Results -ve Straight Leg Raise Test Results -ve Comments 50 degrees without pain Scour Test Test Results -ve Knee Special Tests Apley's Compression Test Results -ve Valgus- 0 Degrees Test Results -ve Varus- 0 Degrees Test Results -ve Valgus- 25 Degrees Test Results -ve Varus- 25 Degrees Test Results -ve PT-OP-M Strength Start: 04/29/21 12:08 Freq: Status: Active Protocol: Document 04/29/21 12:17 (Rec: 04/29/21 12:42 [email or web address]) Hip Strength Hip Manual Muscle Testing Right Flexion (L2) 4+ Good+ Extension (S1) 4+ Good+ Abduction 4+ Good+ Adduction 5 Normal Left Flexion (L2) 5 Normal Extension (S1) 5 Normal Abduction 5 Normal Adduction 5 Normal Knee Strength Knee Manual Muscle Testing Right Flexion (S2) 5 Normal Extension (L3) 5 Normal Left Flexion (S2) 5 Normal Extension (L3) 5 Normal PT-OP-Q Treatments Start: 04/29/21 12:08 Freq: Status: Active Protocol: Document 07/31/21 11:08 (Rec: 07/31/21 12:07 [id number]) Cardio Equipment Bicycle (Upright) Duration (Minutes) 6 Resistance 7 Seat Position 6 Other no radiating pain Therapeutic Exercises Supine Exercises ankle eversion Supine Exercise Name and DF Equipment Used red band Reps/Minutes 10 x2 Comments for HEP bridging Supine Exercise Name bilateral then SL Equipment Used red band Reps/Minutes 10 x2, 3 sec hold at top Comments for HEP, pt feels weakness on R>L Standing Exercises calf stretch Reps/Minutes 15 sec x 5 Comments for HEP tennis ball release Standing Exercise Name on plantar fascia insertion Reps/Minutes 2 mins Comments for HEP Manual Therapy Treatment Soft Tissue Mobilization R lateral calf Body Location peroneals and gastro Mobilization Type Myofascial Release,Sustained Pressure,Trigger Point Release Intensity/Depth Moderate Body Position Prone Joint Mobilizations calcaneus Direction lateral and inferior Body Position Supine Comments no dsicomfort R ankle Joint calcanueal eversion and mid foot pronation Body Position Supine Comments no pain to R knee and hip today PT-OP-T Assessment and Plan Start: 04/29/21 12:08 Freq: Status: Active Protocol: Document 07/31/21 11:08 (Rec: 07/31/21 12:07 [id number]) Physical Therapy Assessment Goals HEP Impairment pt does not ahve HEP Short Term Goal (STG) pt will be compliant to his HEP and complete them safely and independently. STG Duration 4 weeks Retirement Goal (LTG) 06/19 goal met pt has been compliant to his HEP daily. balance Impairment R= 3-7 s , L= >20s Short Term Goal (STG) 06/19 goal met pt shows improved hip stability and strength to be able to maintain standing on R leg >10 s STG Duration 4 weeks Retirement Goal (LTG) 07/10 goal met L= 32s, R= 31s pt shows improved hip stability and strength to be able to maintain standing on R leg >20s, therefore he can complete stair climbing/ walking without compensation LTG Duration 8 weeks pain Impairment pt has consistent pain 5/10 for R knee and hip Short Term Goal (STG) 06/19 pt is able to tolerate driving >30-45 mins without the need to come off pt will have pain no more than 3/10 for both R knee and R hip while driving STG Duration 4 weeks Retirement Goal (LTG) 07/10 pt currently still has inconsistent hip/ knee soreness from prolonged sitting in the car. pt will have painfree for both R knee and R hip while driving and after a prolonged period of sitting LTG Duration 8weeks Assessment Summary Assessment pt is progressing well who is able to sit in car ride without discomfort. consolidated his HEP to focus on calf stretching, ankle strengthening and hip stability therex and he taqueria well so far. Physical Therapy Plan Frequency and Duration Frequency of Treatment 1x/Week Duration of Treatment 6 weeks Plan of Care Start Date 07/17/21 Plan of Care End Date 08/31/21 Therapeutic Interventions Therapeutic Interventions Aquatic Therapy,Balance Training,Gait Training,Home Exercise Program,Joint Mobilizations,Manual Therapy, Patient/Caregiver Education, Self-Care/Home Management,Soft Tissue Mobilization,Taping, Therapeutic Activities, Therapeutic Exercises Modalities Biofeedback,Cold Pack/Ice Massage,Electric Stimulation, Hot Packs,Infrared Therapy, Paraffin Bath,Traction- Mechanical,Ultrasound Next Visit Focus/Plan Next Note Type Treatment Note Next Visit Plan test SLS, gait training
--- NOTE | 2021-08-07 09:46 | PT.OTN ---
Current Diagnoses Pain in right knee (08/07/21) Physical Therapy Treatment Note PT-OP-A Visit Information Start: 04/29/21 12:08 Freq: Status: Active Protocol: Document 08/07/21 08:56 HH (Rec: 08/07/21 09:46 [id number]) Out-Patient Physical Therapy Visit Information Visit Information Visit Type Treatment Note Visit Start Time 09:00 Visit Stop Time 09:44 Total Visit Minutes 44 Visit Number 14/30 Number of FORGE SHOP SUPERVISOR Visits 0 PT-OP-B Current Condition Start: 04/29/21 12:08 Freq: Status: Active Protocol: Document 04/29/21 12:17 HH (Rec: 04/29/21 12:42 [email or web address]) Current Condition History of Current Condition Onset Date Nov, 2020 Current Complaints R lateral knee pain with radiating R hip pain, difficulty in sitting History of Current Condition Shola is a 65 yo male here for his R lateral knee pain and hip pain started this November. He began to notice his pain starts from posteriolateral side of R knee and it radiates to his R latearl calf and R lateral hip. His pain particularly gets worse with stepping on the gas pedal while driving and he often has to scoot himself and sit on his L side for pain relief. He also has numbness/ tingling sensation often after prolonged sitting. He notices walking and swimming tend to loose things up and his sleep is not affected at this point . Pt had a broken femur from an accident many years ago and did a traction unit for 6 weeks. Pt also states he walks 4-5 miles a day with a total of 12k steps. Prior Treatments and Tests x-ray for R knee 03/13/21 IMPRESSION: No trauma found. Slight narrowing of the medial compartment joint interspace indicating slight osteoarthritis in that area. LTKA = 15 years ago Treatment Goals Patient/Caregiver Goals 1. to relieve his R knee and hip pain 2. able to drive without discomfort Personal Factors Other Personal Factors That May Effect DM II Therapy/Recovery HTN PT-OP-C Subjective Start: 04/29/21 12:08 Freq: Status: Active Protocol: Document 08/07/21 08:56 HH (Rec: 08/07/21 09:46 [id number]) OP-PT Subjective Patient Comments Patient Comments everything is doing pretty good now. I dont have that lateral knee pain lately but i do have soreness at the hip. I do have stiffness in the morning. Patient Reported Progress Improving PT-OP-D Balance Start: 04/29/21 12:08 Freq: Status: Active Protocol: Document 04/29/21 12:17 HH (Rec: 04/29/21 12:42 [email or web address]) Balance Tests Single Limb Standing Single Limb- Right 5,7,3 Single Limb- Left 24,21,22 PT-OP-F Manual Assessment Start: 04/29/21 12:08 Freq: Status: Active Protocol: Document 04/29/21 12:17 HH (Rec: 04/29/21 12:42 [email or web address]) Manual Assessments Soft Tissue Assessment Soft Tissue Mobility Assessment significant toncity at R piriformis, glute med and R lateral quad (distal) PT-OP-G Mobility & Gait Start: 04/29/21 12:08 Freq: Status: Active Protocol: Document 04/29/21 12:17 HH (Rec: 04/29/21 12:42 [email or web address]) OP Gait Assessment Gait Deviations General Gait Pattern Wide Based Gait Factors Limiting Gait Function Factors Limiting Gait Function Decreased Activity Tolerance, Decreased Strength,Limited Range of Motion,Pain,Poor Balance Comments Gait Comments pt stands and amb with a WBOS with increased WB on L side. PT-OP-J Posture/Palpation/Skin Start: 04/29/21 12:08 Freq: Status: Active Protocol: Document 04/29/21 12:17 HH (Rec: 04/29/21 12:42 [email or web address]) Posture Evaluation Position Standing Pelvis Posture Anteriorly Tilted Weight Distribution Decreased Wt.Bear on (R) Hip Posture (L) Externally Rotated,(R) Externally Rotated Knee Posture (L) Ext. Tibial Torsion,(R) Ext. Tibial Torsion PT-OP-K Range of Motion Start: 04/29/21 12:08 Freq: Status: Active Protocol: Document 04/29/21 12:17 HH (Rec: 04/29/21 12:42 [email or web address]) Hip Goniometric Range of Motion Hip Right Active Straight Leg Raise 50 Internal Rotation 18 External Rotation 58 Left Active Straight Leg Raise 50 Internal Rotation 28 External Rotation 60 Hip ROM Limitations Hip ROM Limitations Soft Tissue Tightness,Muscle Weakness PT-OP-L Special Tests Start: 04/29/21 12:08 Freq: Status: Active Protocol: Document 04/29/21 12:17 HH (Rec: 04/29/21 12:42 [email or web address]) Special Tests Lumbar Spine Special Tests Slump Test Results +VE R Comments R buttock pain with seated knee ext and DF Hip Special Tests Piriformis Test Results +VE R Comments significant tightness noted. MOE Test Results -ve Straight Leg Raise Test Results -ve Comments 50 degrees without pain Scour Test Test Results -ve Knee Special Tests Apley's Compression Test Results -ve Valgus- 0 Degrees Test Results -ve Varus- 0 Degrees Test Results -ve Valgus- 25 Degrees Test Results -ve Varus- 25 Degrees Test Results -ve PT-OP-M Strength Start: 04/29/21 12:08 Freq: Status: Active Protocol: Document 04/29/21 12:17 HH (Rec: 04/29/21 12:42 [email or web address]) Hip Strength Hip Manual Muscle Testing Right Flexion (L2) 4+ Good+ Extension (S1) 4+ Good+ Abduction 4+ Good+ Adduction 5 Normal Left Flexion (L2) 5 Normal Extension (S1) 5 Normal Abduction 5 Normal Adduction 5 Normal Knee Strength Knee Manual Muscle Testing Right Flexion (S2) 5 Normal Extension (L3) 5 Normal Left Flexion (S2) 5 Normal Extension (L3) 5 Normal PT-OP-Q Treatments Start: 04/29/21 12:08 Freq: Status: Active Protocol: Document 08/07/21 08:56 HH (Rec: 08/07/21 09:46 HH [id number]) Cardio Equipment Bicycle (Upright) Duration (Minutes) 6 Resistance 7 Seat Position 6 Other no radiating pain Therapeutic Exercises Supine Exercises ankle eversion Supine Exercise Name and DF Equipment Used red band Reps/Minutes 10 x2 Comments for HEP hip IR stretch Supine Exercise Name PT assisted Side right bridging Supine Exercise Name bilateral then SL Equipment Used red band Reps/Minutes 10 x2, 3 sec hold at top Comments for HEP, pt feels weakness on R>L Sidelying Exercises hip abduction Side right Reps/Minutes 8 x3 Comments no discomfort Standing Exercises SL balance 2 Standing Exercise Name step up Equipment Used 12 inch box Reps/Minutes 8x 2 SL balance Standing Exercise Name slider lunges laterally Resistance slider Reps/Minutes 10 x2 Comments pt feels burning sensation at R hip calf stretch Reps/Minutes 15 sec x 5 Comments for HEP Manual Therapy Treatment Soft Tissue Mobilization R lateral calf Body Location peroneals and gastro Mobilization Type Myofascial Release,Sustained Pressure,Trigger Point Release Intensity/Depth Moderate Body Position Prone Joint Mobilizations calcaneus Direction lateral and inferior Body Position Supine Comments no dsicomfort hip traction Joint R hip Direction inferior Grade III Body Position Supine PT-OP-T Assessment and Plan Start: 04/29/21 12:08 Freq: Status: Active Protocol: Document 08/07/21 08:56 (Rec: 08/07/21 09:46 [id number]) Physical Therapy Assessment Goals HEP Impairment pt does not ahve HEP Short Term Goal (STG) pt will be compliant to his HEP and complete them safely and independently. STG Duration 4 weeks Filter Press Supervisor Goal (LTG) 06/19 goal met pt has been compliant to his HEP daily. balance Impairment R= 3-7 s , L= >20s Short Term Goal (STG) 06/19 goal met pt shows improved hip stability and strength to be able to maintain standing on R leg >10 s STG Duration 4 weeks Filter Press Supervisor Goal (LTG) 07/10 goal met L= 32s, R= 31s pt shows improved hip stability and strength to be able to maintain standing on R leg >20s, therefore he can complete stair climbing/ walking without compensation LTG Duration 8 weeks pain Impairment pt has consistent pain 5/10 for R knee and hip Short Term Goal (STG) 06/19 pt is able to tolerate driving >30-45 mins without the need to come off pt will have pain no more than 3/10 for both R knee and R hip while driving STG Duration 4 weeks Filter Press Supervisor Goal (LTG) 07/10 pt currently still has inconsistent hip/ knee soreness from prolonged sitting in the car. pt will have painfree for both R knee and R hip while driving and after a prolonged period of sitting LTG Duration 8weeks Assessment Summary Assessment continue to focus on hip and SL strengthening today. Pt still has difficulty engaging R hip stabilizer while standing on RLE (pt trunk lean to R). However, pt is progressing well and expecting next visit is his last session before his road trip. Physical Therapy Plan Frequency and Duration Frequency of Treatment 1x/Week Duration of Treatment 6 weeks Plan of Care Start Date 07/17/21 Plan of Care End Date 08/31/21 Therapeutic Interventions Therapeutic Interventions Aquatic Therapy,Balance Training,Gait Training,Home Exercise Program,Joint Mobilizations,Manual Therapy, Patient/Caregiver Education, Self-Care/Home Management,Soft Tissue Mobilization,Taping, Therapeutic Activities, Therapeutic Exercises Modalities Biofeedback,Cold Pack/Ice Massage,Electric Stimulation, Hot Packs,Infrared Therapy, Paraffin Bath,Traction- Mechanical,Ultrasound Next Visit Focus/Plan Next Note Type Treatment Note Next Visit Plan test SLS, gait training
--- NOTE | 2021-08-14 12:17 | PT.OTN ---
Current Diagnoses Pain in right knee (08/14/21) Physical Therapy Treatment Note PT-OP-A Visit Information Start: 04/29/21 12:08 Freq: Status: Active Protocol: Document 08/14/21 08:58 (Rec: 08/14/21 10:18 [id number]) Out-Patient Physical Therapy Visit Information Visit Information Visit Type Treatment Note Visit Start Time 09:00 Visit Stop Time 09:45 Total Visit Minutes 45 Visit Number 15/30 Number of AUTOMATIC OUTSOLE CUTTER Visits 0 PT-OP-B Current Condition Start: 04/29/21 12:08 Freq: Status: Active Protocol: Document 04/29/21 12:17 HH (Rec: 04/29/21 12:42 [email or web address]) Current Condition History of Current Condition Onset Date Nov, 2020 Current Complaints R lateral knee pain with radiating R hip pain, difficulty in sitting History of Current Condition Shola is a 65 yo male here for his R lateral knee pain and hip pain started this November. He began to notice his pain starts from posteriolateral side of R knee and it radiates to his R latearl calf and R lateral hip. His pain particularly gets worse with stepping on the gas pedal while driving and he often has to scoot himself and sit on his L side for pain relief. He also has numbness/ tingling sensation often after prolonged sitting. He notices walking and swimming tend to loose things up and his sleep is not affected at this point . Pt had a broken femur from an accident many years ago and did a traction unit for 6 weeks. Pt also states he walks 4-5 miles a day with a total of 12k steps. Prior Treatments and Tests x-ray for R knee 03/13/21 IMPRESSION: No trauma found. Slight narrowing of the medial compartment joint interspace indicating slight osteoarthritis in that area. LTKA = 15 years ago Treatment Goals Patient/Caregiver Goals 1. to relieve his R knee and hip pain 2. able to drive without discomfort Personal Factors Other Personal Factors That May Effect DM II Therapy/Recovery HTN PT-OP-C Subjective Start: 04/29/21 12:08 Freq: Status: Active Protocol: Document 08/14/21 08:58 HH (Rec: 08/14/21 10:18 [id number]) OP-PT Subjective Patient Comments Patient Comments I drove to [facility] yesterday. I could feel a bit at the back of my knee on the way back but its probably from my walking> 19k steps. PT-OP-D Balance Start: 04/29/21 12:08 Freq: Status: Active Protocol: Document 04/29/21 12:17 (Rec: 04/29/21 12:42 [email or web address]) Balance Tests Single Limb Standing Single Limb- Right 5,7,3 Single Limb- Left 24,21,22 PT-OP-F Manual Assessment Start: 04/29/21 12:08 Freq: Status: Active Protocol: Document 04/29/21 12:17 HH (Rec: 04/29/21 12:42 [email or web address]) Manual Assessments Soft Tissue Assessment Soft Tissue Mobility Assessment significant toncity at R piriformis, glute med and R lateral quad (distal) PT-OP-G Mobility & Gait Start: 04/29/21 12:08 Freq: Status: Active Protocol: Document 04/29/21 12:17 HH (Rec: 04/29/21 12:42 [email or web address]) OP Gait Assessment Gait Deviations General Gait Pattern Wide Based Gait Factors Limiting Gait Function Factors Limiting Gait Function Decreased Activity Tolerance, Decreased Strength,Limited Range of Motion,Pain,Poor Balance Comments Gait Comments pt stands and amb with a WBOS with increased WB on L side. PT-OP-J Posture/Palpation/Skin Start: 04/29/21 12:08 Freq: Status: Active Protocol: Document 04/29/21 12:17 HH (Rec: 04/29/21 12:42 [email or web address]) Posture Evaluation Position Standing Pelvis Posture Anteriorly Tilted Weight Distribution Decreased Wt.Bear on (R) Hip Posture (L) Externally Rotated,(R) Externally Rotated Knee Posture (L) Ext. Tibial Torsion,(R) Ext. Tibial Torsion PT-OP-K Range of Motion Start: 04/29/21 12:08 Freq: Status: Active Protocol: Document 04/29/21 12:17 HH (Rec: 04/29/21 12:42 [email or web address]) Hip Goniometric Range of Motion Hip Right Active Straight Leg Raise 50 Internal Rotation 18 External Rotation 58 Left Active Straight Leg Raise 50 Internal Rotation 28 External Rotation 60 Hip ROM Limitations Hip ROM Limitations Soft Tissue Tightness,Muscle Weakness PT-OP-L Special Tests Start: 04/29/21 12:08 Freq: Status: Active Protocol: Document 04/29/21 12:17 HH (Rec: 04/29/21 12:42 [email or web address]) Special Tests Lumbar Spine Special Tests Slump Test Results +VE R Comments R buttock pain with seated knee ext and DF Hip Special Tests Piriformis Test Results +VE R Comments significant tightness noted. MOE Test Results -ve Straight Leg Raise Test Results -ve Comments 50 degrees without pain Scour Test Test Results -ve Knee Special Tests Apley's Compression Test Results -ve Valgus- 0 Degrees Test Results -ve Varus- 0 Degrees Test Results -ve Valgus- 25 Degrees Test Results -ve Varus- 25 Degrees Test Results -ve PT-OP-M Strength Start: 04/29/21 12:08 Freq: Status: Active Protocol: Document 04/29/21 12:17 HH (Rec: 04/29/21 12:42 [email or web address]) Hip Strength Hip Manual Muscle Testing Right Flexion (L2) 4+ Good+ Extension (S1) 4+ Good+ Abduction 4+ Good+ Adduction 5 Normal Left Flexion (L2) 5 Normal Extension (S1) 5 Normal Abduction 5 Normal Adduction 5 Normal Knee Strength Knee Manual Muscle Testing Right Flexion (S2) 5 Normal Extension (L3) 5 Normal Left Flexion (S2) 5 Normal Extension (L3) 5 Normal PT-OP-Q Treatments Start: 04/29/21 12:08 Freq: Status: Active Protocol: Document 08/14/21 08:58 HH (Rec: 08/14/21 10:18 [id number]) Cardio Equipment Bicycle (Upright) Duration (Minutes) 6 Resistance 7 Seat Position 6 Other no radiating pain Therapeutic Exercises Supine Exercises bridging Supine Exercise Name bilateral then SL Equipment Used ball between thighs Reps/Minutes 10 x2, 3 sec hold at top Comments for HEP, pt feels weakness on R>L Standing Exercises SL balance 2 Standing Exercise Name step up Equipment Used 12 inch box Reps/Minutes 8x 2 SL balance Standing Exercise Name slider lunges laterally Resistance slider Reps/Minutes 10 x2 Comments pt feels burning sensation at R hip hip abd Side right Reps/Minutes 10 x2 Comments discomfort 3/10 Manual Therapy Treatment Joint Mobilizations calcaneus Direction lateral and inferior Body Position Supine Comments no dsicomfort R ankle Joint calcanueal eversion and mid foot pronation Body Position Supine Comments no pain to R knee and hip today PT-OP-T Assessment and Plan Start: 04/29/21 12:08 Freq: Status: Active Protocol: Document 08/14/21 08:58 (Rec: 08/14/21 10:18 [id number]) Physical Therapy Assessment Goals HEP Impairment pt does not ahve HEP Short Term Goal (STG) pt will be compliant to his HEP and complete them safely and independently. STG Duration 4 weeks Adolescent Coordinator Goal (LTG) 06/19 goal met pt has been compliant to his HEP daily. balance Impairment R= 3-7 s , L= >20s Short Term Goal (STG) 06/19 goal met pt shows improved hip stability and strength to be able to maintain standing on R leg >10 s STG Duration 4 weeks Care Home Goal (LTG) 07/10 goal met L= 32s, R= 31s pt shows improved hip stability and strength to be able to maintain standing on R leg >20s, therefore he can complete stair climbing/ walking without compensation LTG Duration 8 weeks pain Impairment pt has consistent pain 5/10 for R knee and hip Short Term Goal (STG) 06/19 pt is able to tolerate driving >30-45 mins without the need to come off pt will have pain no more than 3/10 for both R knee and R hip while driving STG Duration 4 weeks Care Home Goal (LTG) 07/10 pt currently still has inconsistent hip/ knee soreness from prolonged sitting in the car. pt will have painfree for both R knee and R hip while driving and after a prolonged period of sitting LTG Duration 8weeks Assessment Summary Assessment pt is leaving for his 2weeks road trip at the end of this week. He is progressively getting better with less discomfort during driving. Spent time educating pt to focus on ankle mobility and hip strengthening ex. Will f/u with him via phone call in 2 weeks. possible DC Physical Therapy Plan Frequency and Duration Frequency of Treatment 1x/Week Duration of Treatment 6 weeks Plan of Care Start Date 07/17/21 Plan of Care End Date 08/31/21 Therapeutic Interventions Therapeutic Interventions Aquatic Therapy,Balance Training,Gait Training,Home Exercise Program,Joint Mobilizations,Manual Therapy, Patient/Caregiver Education, Self-Care/Home Management,Soft Tissue Mobilization,Taping, Therapeutic Activities, Therapeutic Exercises Modalities Biofeedback,Cold Pack/Ice Massage,Electric Stimulation, Hot Packs,Infrared Therapy, Paraffin Bath,Traction- Mechanical,Ultrasound Next Visit Focus/Plan Next Note Type Treatment Note Next Visit Plan test SLS, gait training
--- NOTE | 2021-10-01 14:06 | PT.OPDS ---
Current Diagnoses Pain in right knee (08/14/21) Visit Care Team Role Provider Type Emir Mckeon MD Attending Provider Physician Primary Care Provider Referring Provider Specialty: Internal Medicine Address: [address] [place] [address], [address], [place], [address] Email: [email or web address] Visit Number Visit Number Discharge Summary PT-OP-T Assessment and Plan Start: 04/29/21 12:08 Freq: Status: Active Protocol: Document 10/01/21 14:05 (Rec: 10/01/21 14:06 [email or web address]) Physical Therapy Plan Discharge Physical Therapy Discharge Reasons No Longer Attending PT Discharge Comments pt no longer attending therapy d/t his vacation. He was showing progress over the course of rehab. DC from PT today
== END 2021-10-02 14:06 ==
LOC: PHYS 09:00
PROVIDERS: PCP Student in an Organized Health Care Education/Training Program; Referring Provider Student in an Organized Health Care Education/Training Program; Visit Provider Student in an Organized Health Care Education/Training Program
DX: M25.561 Pain in right knee (principal)
CPT/HCPCS: 97110; 97116; 97140; 97161

== ENCOUNTER → 2021-08-17 07:48 | Outpatient (CLI) | payer MEDICARE, SELFPAY ==
[2021-08-17 10:20] LABS: BUN Creatinine Ratio 17.5 (6-22); Blood Urea Nitrogen 24 mg/dL (9-20); Estimated Glomerular Filt Rate 52.1 mL/min (>60)
[2021-08-17 10:38] LABS: Hemoglobin A1C% w Est Avg Glu 7.3 % (4.0-6.0)
== END ==
PROVIDERS: PCP Student in an Organized Health Care Education/Training Program; Referring Provider Student in an Organized Health Care Education/Training Program; Visit Provider Student in an Organized Health Care Education/Training Program
DX: E11.9 Type 2 diabetes mellitus without complications (principal); Z79.4 Long term (current) use of insulin; N18.31 Chronic kidney disease, stage 3a
CPT/HCPCS: 36415; 82565; 83036; 84520

== ENCOUNTER → 2022-02-24 08:03 | Outpatient (CLI) | payer MEDICARE, SELFPAY ==
[2022-02-24 09:19] LABS: BUN Creatinine Ratio 21.5 (6-22); Blood Urea Nitrogen 28 mg/dL (9-20); Calcium 9.2 mg/dL (8.4-10.2); Carbon Dioxide 30 mmol/L (22-32); Chloride 103 mmol/L (98-107); Cholesterol 188 mg/dL (140-199); Estimated Glomerular Filt Rate 55.4 mL/min (>60); Glucose 136 mg/dL (80-110); HDL Cholesterol 38 mg/dL (40-60); HEMOLYSIS < 15 (0-50); Hemoglobin A1C% w Est Avg Glu 7.9 % (4.0-6.0); LDL Cholesterol Calculated 122 mg/dL (<100); Sodium 140 mmol/L (137-145); Triglycerides 141 mg/dL (35-150)
[2022-02-24 09:46] LABS: Prostate Specific Antigen Scrn 0.986 ng/mL (0.1-4.0)
[2022-02-24 12:58] LABS: Microalbumin Urine Random 1.2 mg/dL (0-1.6)
[2022-02-24 13:00] LABS: Creatinine Urine Random 179.6 mg/dL; Microalbumi Creatinin Ratio Ur 6.6 ug/mg CR (<30)
== END ==
PROVIDERS: PCP Student in an Organized Health Care Education/Training Program; Referring Provider Student in an Organized Health Care Education/Training Program; Visit Provider Student in an Organized Health Care Education/Training Program
DX: I12.9 Hypertensive chronic kidney disease with stage 1 through stage 4 chronic kidney disease, or unspecified chronic kidney disease (principal); N18.31 Chronic kidney disease, stage 3a; Z12.5 Encounter for screening for malignant neoplasm of prostate; E11.22 Type 2 diabetes mellitus with diabetic chronic kidney disease; Z79.4 Long term (current) use of insulin
CPT/HCPCS: 36415; 80048; 80061; 82043; 82570; 83036; G0103

== ENCOUNTER → 2022-02-24 15:37 | Outpatient (CLI) | payer MEDICARE, SELFPAY ==
--- NOTE | 2022-02-24 15:41 | DI.RAD.S_ITS ---
PROCEDURE: XR RIBS RT MIN 3V W CXR 1V INDICATIONS: Right rib injury TECHNIQUE: 2 views of the right ribs were acquired, along with a single view chest. COMPARISON: None. FINDINGS: Surgical changes and devices: None. Bones and chest wall: No acute, displaced fracture. No suspicious bony lesions. Overlying soft tissues appear unremarkable. Lungs and pleura: No pleural effusions or pneumothorax. Lungs appear clear. Mediastinum: Mediastinal contours appear normal. Heart size is normal. IMPRESSION: No acute, displaced rib fracture. Dictated by: Raz Meyer M.D. on 02/24/2022 at 16:16 Approved by: Raz Meyer M.D. on 02/24/2022 at 16:17
== END ==
PROVIDERS: PCP Student in an Organized Health Care Education/Training Program; Referring Provider Student in an Organized Health Care Education/Training Program; Visit Provider Student in an Organized Health Care Education/Training Program
DX: S29.9XXA Unspecified injury of thorax, initial encounter (principal); E11.22 Type 2 diabetes mellitus with diabetic chronic kidney disease; I12.9 Hypertensive chronic kidney disease with stage 1 through stage 4 chronic kidney disease, or unspecified chronic kidney disease; N18.31 Chronic kidney disease, stage 3a; Z79.4 Long term (current) use of insulin; Z12.5 Encounter for screening for malignant neoplasm of prostate; X58.XXXA Exposure to other specified factors, initial encounter
CPT/HCPCS: 36415; 71100; 71101; 80048; 80061; 82043; 82570; 83036; G0103

== ENCOUNTER → 2022-06-17 10:01 | Outpatient (CLI) | payer MEDICARE, SELFPAY ==
[2022-06-17 11:48] LABS: Hemoglobin A1C% w Est Avg Glu 6.4 % (4.0-6.0)
== END ==
PROVIDERS: PCP Student in an Organized Health Care Education/Training Program; Referring Provider Student in an Organized Health Care Education/Training Program; Visit Provider Student in an Organized Health Care Education/Training Program
DX: E11.9 Type 2 diabetes mellitus without complications (principal); Z79.4 Long term (current) use of insulin
CPT/HCPCS: 36415; 83036

== ENCOUNTER → 2022-09-06 09:35 | Outpatient (CLI) | payer MEDICARE, SELFPAY ==
[2022-09-06 10:21] LABS: BUN Creatinine Ratio 22.8 (6-22); Blood Urea Nitrogen 28 mg/dL (9-20); Calcium 9.1 mg/dL (8.4-10.2); Carbon Dioxide 25 mmol/L (22-32); Chloride 104 mmol/L (98-107); Estimated Glomerular Filt Rate > 60 mL/min (>60); Glucose 131 mg/dL (80-110); HEMOLYSIS < 15 (0-50); Potassium 4.1 mmol/L (3.4-5.1); Sodium 139 mmol/L (137-145)
[2022-09-08 07:08] LABS: Fructosamine 254 umol/L (0-285)
== END ==
PROVIDERS: PCP Student in an Organized Health Care Education/Training Program; Referring Provider Student in an Organized Health Care Education/Training Program; Visit Provider Student in an Organized Health Care Education/Training Program
DX: E11.9 Type 2 diabetes mellitus without complications (principal); I10 Essential (primary) hypertension; N18.31 Chronic kidney disease, stage 3a; Z79.4 Long term (current) use of insulin
CPT/HCPCS: 36415; 80048; 82985

== ENCOUNTER → 2023-03-05 10:35 | Outpatient (CLI) | payer MEDICARE, SELFPAY ==
[2023-03-05 12:57] LABS: Creatinine Urine Random 178.3 mg/dL
[2023-03-05 13:00] LABS: Microalbumin Urine Random 0.9 mg/dL (0-1.6)
[2023-03-05 13:45] LABS: HEMOLYSIS < 15 (0-50)
[2023-03-05 13:50] LABS: Potassium 4.2 mmol/L (3.4-5.1)
[2023-03-05 13:51] LABS: Blood Urea Nitrogen 35 mg/dL (9-20); Calcium 9.3 mg/dL (8.4-10.2); Carbon Dioxide 28 mmol/L (22-32); Chloride 104 mmol/L (98-107); Cholesterol 166 mg/dL (140-199); Estimated Glomerular Filt Rate 48 mL/min (>60); Glucose 105 mg/dL (80-110); HDL Cholesterol 41 mg/dL (40-60); LDL Cholesterol Calculated 109 mg/dL (<100); Sodium 139 mmol/L (137-145); Triglycerides 78 mg/dL (35-150)
[2023-03-06 02:32] LABS: Prostate Specific Antigen Scrn 1.89 ng/mL (0.1-4.0)
[2023-03-06 03:56] LABS: x Labcorp Estim. Avg Glu (eAG) 160 mg/dL (.); x Labcorp Hemoglobin A1c 7.2 % (4.8-5.6)
== END ==
PROVIDERS: PCP Student in an Organized Health Care Education/Training Program; Referring Provider Student in an Organized Health Care Education/Training Program; Visit Provider Student in an Organized Health Care Education/Training Program
DX: Z12.5 Encounter for screening for malignant neoplasm of prostate; E11.9 Type 2 diabetes mellitus without complications; E78.5 Hyperlipidemia, unspecified; I10 Essential (primary) hypertension; N18.31 Chronic kidney disease, stage 3a
CPT/HCPCS: 36415; 80048; 80061; 82043; 82570; 83036; G0103

== ENCOUNTER → 2023-11-05 10:33 | Outpatient (CLI) | payer MEDICARE, SELFPAY ==
[2023-11-05 11:46] LABS: Hemoglobin A1C% w Est Avg Glu 8.2 % (4.0-6.0)
[2023-11-05 11:49] LABS: BUN Creatinine Ratio 26.1 (6-22); Blood Urea Nitrogen 30 mg/dL (9-20); Calcium 9.4 mg/dL (8.4-10.2); Carbon Dioxide 26 mmol/L (22-32); Chloride 104 mmol/L (98-107); Cholesterol 150 mg/dL (140-199); Estimated Glomerular Filt Rate > 60 mL/min (>60); Glucose 155 mg/dL (80-110); HDL Cholesterol 33 mg/dL (40-60); HEMOLYSIS < 15 (0-50); LDL Cholesterol Calculated 97 mg/dL (<100); Sodium 138 mmol/L (137-145); Triglycerides 98 mg/dL (35-150)
== END ==
PROVIDERS: Student in an Organized Health Care Education/Training Program; PCP Family Medicine; Referring Provider Family Medicine; Visit Provider Family Medicine
DX: E11.9 Type 2 diabetes mellitus without complications (principal); N18.31 Chronic kidney disease, stage 3a; E78.00 Pure hypercholesterolemia, unspecified; I10 Essential (primary) hypertension; Z79.4 Long term (current) use of insulin
CPT/HCPCS: 36415; 80048; 80061; 83036

== ENCOUNTER → 2024-02-03 07:57 | Outpatient (CLI) | payer MEDICARE, SELFPAY ==
[2024-02-03 09:03] LABS: Add Manual Diff / Slide Review NO; Basophils Absolute Auto 100 /uL (0-100); Basophils Percent Auto 0.9 % (0-2); Eosinophils Absolute Auto 400 /uL (0-450); Eosinophils Percent Auto 4.8 % (2-4); Hematocrit 40.5 % (41-53); Hemoglobin 13.9 g/dL (13.5-17.5); Lymphocytes Absolute Auto 2100 /uL (1100-4500); Lymphocytes Percent Auto 25.5 % (25-40); Mean Corpuscular HGB Conc 34.4 % (30-36); Mean Corpuscular Hemoglobin 29.9 PG (26-34); Mean Corpuscular Volume 87.1 fL (80-100); Monocytes Absolute Auto 600 /uL (0-900); Monocytes Percent Auto 7.2 % (3-14); Neutrophils Absolute Auto 5100 /uL (1500-7000); Neutrophils Percent Auto 61.6 % (50-75); Platelet Count 241 X10^3/uL (150-400); Red Blood Cell Count 4.65 X10^6/uL (4.5-5.9); Red Cell Distribution Width 12.7 % (11.6-14.8); White Blood Cell Count 8.3 X10^3/uL (4.5-11.0)
[2024-02-03 09:13] LABS: Hemoglobin A1C% w Est Avg Glu 7.5 % (4.0-6.0)
[2024-02-03 09:34] LABS: Alanine Aminotransferase 26 IU/L (<50); Albumin 3.9 g/dL (3.5-5.0); Albumin Globulin Ratio 1.3 (1.0-2.8); Alkaline Phosphatase 80 U/L (38-126); Aspartate Aminotransferase 24 IU/L (17-59); BUN Creatinine Ratio 21.1 (6-22); Bilirubin Total 0.8 mg/dL (0.2-1.3); Blood Urea Nitrogen 30 mg/dL (9-20); Calcium 9.6 mg/dL (8.4-10.2); Carbon Dioxide 29 mmol/L (22-32); Chloride 104 mmol/L (98-107); Estimated Glomerular Filt Rate 54 mL/min (>60); Glucose 149 mg/dL (80-110); HEMOLYSIS < 15 (0-50); Potassium 4.5 mmol/L (3.4-5.1); Sodium 138 mmol/L (137-145); Total Protein 6.9 g/dL (6.3-8.2)
[2024-02-03 10:56] LABS: Microalbumin Urine Random 7.7 mg/dL (0-1.6)
[2024-02-03 11:21] LABS: Creatinine Urine Random 592.7 mg/dL; Microalbumi Creatinin Ratio Ur 12.9 ug/mg CR (<30)
== END ==
PROVIDERS: PCP Family Medicine; Referring Provider Family Medicine; Visit Provider Family Medicine
DX: E11.9 Type 2 diabetes mellitus without complications (principal); I10 Essential (primary) hypertension
CPT/HCPCS: 36415; 80053; 82043; 82570; 83036; 85025

== ENCOUNTER → 2024-05-16 07:55 | Outpatient (CLI) | payer MEDICARE, SELFPAY | LOC: LAB 07:56 | PROVIDERS: PCP Family Medicine; Referring Provider Family Medicine; Visit Provider Family Medicine | DX: E11.9 Type 2 diabetes mellitus without complications (principal); Z79.4 Long term (current) use of insulin | CPT/HCPCS: 36415; 83036 ==

== ENCOUNTER → 2024-11-07 10:24 | Outpatient (CLI) | payer MEDICARE, SELFPAY ==
[2024-11-07 11:09] LABS: Add Manual Diff / Slide Review NO; Basophils Absolute Auto 100 /uL (0-100); Basophils Percent Auto 0.8 % (0-2); Eosinophils Absolute Auto 300 /uL (0-450); Eosinophils Percent Auto 4.2 % (2-4); Hemoglobin 13.7 g/dL (13.5-17.5); Lymphocytes Absolute Auto 1700 /uL (1100-4500); Lymphocytes Percent Auto 22.6 % (25-40); Mean Corpuscular HGB Conc 33.5 % (30-36); Mean Corpuscular Hemoglobin 29.5 PG (26-34); Monocytes Absolute Auto 500 /uL (0-900); Monocytes Percent Auto 6.3 % (3-14); Neutrophils Absolute Auto 4900 /uL (1500-7000); Neutrophils Percent Auto 66.1 % (50-75); Platelet Count 248 X10^3/uL (150-400); Red Blood Cell Count 4.65 X10^6/uL (4.5-5.9); Red Cell Distribution Width 13.2 % (11.6-14.8); White Blood Cell Count 7.4 X10^3/uL (4.5-11.0)
[2024-11-07 11:14] LABS: Hemoglobin A1C% w Est Avg Glu 7.1 % (4.0-6.0)
[2024-11-07 11:38] LABS: Blood Urea Nitrogen 28 mg/dL (9-20); Calcium 9.2 mg/dL (8.4-10.2); Carbon Dioxide 26 mmol/L (22-32); Chloride 104 mmol/L (98-107); Cholesterol 138 mg/dL (140-199); Estimated Glomerular Filt Rate > 60 mL/min (>60); Glucose 181 mg/dL (80-110); HDL Cholesterol 43 mg/dL (40-60); HEMOLYSIS < 15 (0-50); LDL Cholesterol Calculated 73 mg/dL (<100); Sodium 137 mmol/L (137-145); Triglycerides 108 mg/dL (35-150)
[2024-11-07 12:10] LABS: Prostate Specific Antigen Scrn 1.64 ng/mL (0.1-4.0)
[2024-11-07 14:46] LABS: Creatinine Urine Random 384.91 mg/dL
== END ==
PROVIDERS: PCP Family Medicine; Referring Provider Family Medicine; Visit Provider Family Medicine
DX: E11.9 Type 2 diabetes mellitus without complications (principal); Z12.5 Encounter for screening for malignant neoplasm of prostate; I12.9 Hypertensive chronic kidney disease with stage 1 through stage 4 chronic kidney disease, or unspecified chronic kidney disease; N18.31 Chronic kidney disease, stage 3a; E78.5 Hyperlipidemia, unspecified
CPT/HCPCS: 36415; 80048; 80061; 82043; 82570; 83036; 85025; G0103

== ENCOUNTER → 2025-04-18 10:21 | Outpatient (CLI) | payer MEDICARE, SELFPAY ==
[2025-04-18 10:49] LABS: Hematocrit 41.5 % (41-53); Hemoglobin 13.8 g/dL (13.5-17.5); Mean Corpuscular HGB Conc 33.1 % (30-36); Mean Corpuscular Hemoglobin 29.6 PG (26-34); Mean Corpuscular Volume 89.3 fL (80-100); Platelet Count 253 X10^3/uL (150-400); Red Blood Cell Count 4.65 X10^6/uL (4.5-5.9); Red Cell Distribution Width 12.9 % (11.6-14.8); White Blood Cell Count 6.8 X10^3/uL (4.5-11.0)
[2025-04-18 11:05] LABS: Alanine Aminotransferase 50 IU/L (<50); Albumin 4.3 g/dL (3.5-5.0); Albumin Globulin Ratio 1.3 (1.0-2.8); Alkaline Phosphatase 84 U/L (38-126); Aspartate Aminotransferase 49 IU/L (17-59); BUN Creatinine Ratio 22.6 (6-22); Bilirubin Total 0.8 mg/dL (0.2-1.3); Blood Urea Nitrogen 28 mg/dL (9-20); Calcium 9.3 mg/dL (8.4-10.2); Carbon Dioxide 26 mmol/L (22-32); Chloride 104 mmol/L (98-107); Estimated Glomerular Filt Rate > 60 mL/min (>60); Globulin 3.4 g/dL (1.7-4.1); Glucose 184 mg/dL (70-99); HEMOLYSIS 20 (0-50); Potassium 4.3 mmol/L (3.4-5.1); Sodium 140 mmol/L (137-145); Total Protein 7.7 g/dL (6.3-8.2)
[2025-04-18 11:49] LABS: Microalbumin Urine Random 2.8 mg/dL (0-1.6)
[2025-04-18 11:58] LABS: Creatinine Urine Random 462.28 mg/dL
== END ==
PROVIDERS: PCP Family Medicine; Referring Provider Family Medicine; Visit Provider Family Medicine
DX: E11.9 Type 2 diabetes mellitus without complications (principal); I10 Essential (primary) hypertension
CPT/HCPCS: 36415; 80053; 82043; 82570; 85027

== ENCOUNTER → 2025-11-08 07:54 | Outpatient (CLI) | payer MEDICARE, SELFPAY ==
[2025-11-08 08:23] LABS: Hematocrit 42.8 % (41-53); Hemoglobin 14.6 g/dL (13.5-17.5); Mean Corpuscular HGB Conc 34.2 % (30-36); Mean Corpuscular Hemoglobin 29.8 PG (26-34); Mean Corpuscular Volume 87.2 fL (80-100); Platelet Count 228 X10^3/uL (150-400)
[2025-11-08 09:31] LABS: Alanine Aminotransferase 30 IU/L (<50); Albumin 4.2 g/dL (3.5-5.0); Albumin Globulin Ratio 1.4 (1.0-2.8); Alkaline Phosphatase 91 U/L (38-126); Blood Urea Nitrogen 23 mg/dL (9-20); Calcium 9.3 mg/dL (8.4-10.2); Carbon Dioxide 23 mmol/L (22-32); Chloride 105 mmol/L (98-107); Cholesterol 152 mg/dL (140-199); Estimated Glomerular Filt Rate > 60 mL/min (>60); Globulin 2.9 g/dL (1.7-4.1); Glucose 203 mg/dL (70-99); HDL Cholesterol 50 mg/dL (40-60); HEMOLYSIS < 15 (0-50); Potassium 4.3 mmol/L (3.4-5.1); Sodium 137 mmol/L (137-145); Total Protein 7.1 g/dL (6.3-8.2); Triglycerides 127 mg/dL (35-150)
[2025-11-08 09:38] LABS: Microalbumi Creatinin Ratio Ur 16.0 ug/mg CR (<30)
[2025-11-09 13:55] LABS: Hemoglobin A1C% w Est Avg Glu 8.8 % (4.0-6.0)
== END ==
PROVIDERS: PCP Family Medicine; Referring Provider Family Medicine; Visit Provider Family Medicine
DX: Z12.5 Encounter for screening for malignant neoplasm of prostate (principal); E78.5 Hyperlipidemia, unspecified; E66.01 Morbid (severe) obesity due to excess calories; E11.9 Type 2 diabetes mellitus without complications; I10 Essential (primary) hypertension
CPT/HCPCS: 36415; 80053; 80061; 82043; 82570; 83036; 85027; G0103